=== PATIENT | male | born 1950 | race Caucasian/White ===

== ENCOUNTER → 2017-06-16 | Outpatient (CLI) | payer MEDICARE ==
[2017-06-16 14:46] LABS: Blood Urea Nitrogen 14 mg/dL (9-20); Non-African American GFR(MDRD) >60 (>60 ml/min/1.73 sqM)
== END | disposition home or self-care (01) ==
LOC: LABWHC1 14:12
PROVIDERS: ATTEND Family Medicine
DX: M51.36 Other intervertebral disc degeneration, lumbar region (principal)
CPT/HCPCS: 36415; 82565; 84520

== ENCOUNTER → 2017-06-17 | Outpatient (CLI) | payer MEDICARE ==
--- NOTE | 2017-06-17 10:19 | MR ---
EXAMINATION TYPE: MR cspine/lspine wo/w con DATE OF EXAM: 06/17/2017 COMPARISON: NONE HISTORY: Cervicalgia, and Low back pain per order. Headache with neck pain for 12 years causing pain or weakness into left arm per patient. Low back pain into bilateral thighs for 40 years per patient. TECHNIQUE: Multiplanar, multisequence images of the lumbar cervical and lumbar spine are performed without and w ith IV contrast, utilizing 20 mL intravenous MultiHance FINDINGS: C-SPINE: FINDINGS: Sagittal images of the cervical spine show the craniocervical junction to appear within nor mal limits. The cervical and upper thoracic spinal cord is normal in course, caliber, and signal. Th ere is slight levoconvex scoliotic curvature centered in the upper to midthoracic spine on coronal im ages. Spine is somewhat straightened on sagittal images. The vertebral body and heights are normal. T here is moderate to advanced disc space narrowing C4-C5 level and more mild to moderate disc space na rrowing C5-C6 level with mild disc space narrowing seen at C6-C7 level. Small posterior disc herniati ons and spur disc complexes are seen at C4-C5 through C6-C7 level on sagittal images. Mild to moderat e multilevel anterior spurring in the mid to lower cervical spine is present. There is heterogeneous increased T1 and T2 signal consistent with Modic type II degenerative change centered at the posterio r C4-C5 level. No suspicious postcontrast enhancement is seen. Axial images at C2-C3 level show left paracentral disc protrusion effacing anterolateral thecal sac, bilateral neural foramina are patent. Axial images at C3-C4 level show broad-based left paracentral disc protrusion effacing anterolateral thecal sac, bilateral neural foramina are patent on axial image 39. Axial images at C4-C5 level show right paracentral spur disc complex effacing anterolateral thecal sa c on axial image 30, bilateral neural foramina are patent. Axial images at C5-C6 level show focal right paracentral disc protrusion with some posterior marginal spurring, there is effacement anterior thecal sac and asymmetric mild to moderate left-sided neural foraminal narrowing at this level identified. Right-sided neural foramen is patent. Axial images at C6-C7 level show focal right paracentral/foraminal disc protrusion effacing anterolat eral thecal sac and causing moderate right-sided neural foraminal narrowing on axial image 16, left-s ided neural foramen is patent. Axial images at C7-T1 level are felt within normal limits. IMPRESSION: Some loss of normal cervical curvature with multilevel degenerative changes in the cervic al spine identified with further details as noted in body of report. L-SPINE: Sagittal images of the lumbar spine show vertebral body heights to appear satisfactory. There are yadira ateral pars defects L5 level with a grade 1 anterolisthesis L5 on S1 measured 6 mm on sagittal image 9. There is multilevel disc desiccation. There is fairly advanced disc space narrowing most prominent posteriorly L5-S1 level. Posterior disc herniation L4-L5 level as seen on sagittal images. The conu s medullaris is normal in position and signal ending at T12-L1 disc space level. There is heterogeneo us increased T1 and T2 signal consistent with Modic type II degenerative change at L5-S1 level. No si gnificant spurring is seen. No suspicious postcontrast enhancement is present. Axial images at T12-L1 and L1-L2 level show mild facet degenerative changes bilaterally but spinal ca nal is preserved and bilateral neural foramina are patent. Axial images at L2-L3 and L3-L4 level show mild to borderline moderate facet degenerative bilaterally . In addition there is tiny central disc protrusion and annular tear L3-L4 level minimally effacing a nterior thecal sac. Bilateral neural foramina are patent at both levels. Axial images at L4-L5 level show mild/moderate facet degenerative changes bilaterally. There is right paracentral disc protrusion but spinal canal is preserved. There is asymmetric mild right-sided ante rior inferior neural foraminal narrowing. Left-sided neural foramen is patent. Axial images at L5-S1 level show spondylolisthesis and moderate facet degenerative changes bilaterall y. Spinal canal is preserved. There is moderate left-sided inferior neural foraminal narrowing. There is more severe right-sided neural foraminal narrowing encroaching on right L5 nerve seen best on sag ittal image 13 and axial image 4. There is 1.6 cm oval T2 hyperintense lesion medially in left kidney on axial image 30 felt to reflect simple cyst. IMPRESSION: Bilateral pars defects L5 level with grade 1 anterolisthesis of L5 on S1. There is advanc ed disc space narrowing at this level. There is advanced right-sided neural foraminal narrowing with attachment on right L5 nerve noted.
== END | disposition home or self-care (01) ==
LOC: RADMRIMAIN 07:10
PROVIDERS: ATTEND Family Medicine
DX: M48.07 Spinal stenosis, lumbosacral region (principal); M99.73 Connective tissue and disc stenosis of intervertebral foramina of lumbar region; M43.17 Spondylolisthesis, lumbosacral region; M47.817 Spondylosis without myelopathy or radiculopathy, lumbosacral region; M51.36 Other intervertebral disc degeneration, lumbar region
CPT/HCPCS: 72156; 72158

== ENCOUNTER → 2017-06-23 | Outpatient (CLI) | payer MEDICARE ==
[2017-06-23 13:00] VITALS: BP 122/86; PULSE 107; RESP 18; TEMP 99.1
--- NOTE | 2017-06-23 13:20 | P.PN ---
Progress Note - Text This is a 66-year-old male with history of cervical spondylosis and lumbar spondylolisthesis. His pain is worse in his neck area on the left side and goes to the left shoulder and also up to the head. He had very good response to a previous radiofrequency ablation of the cervical medial branches at C2-C3 and the third occipital nerve. He states that this procedure has given him at least 18 months of pain relief but his pain has been getting worse lately. He takes Neurontin to help with this pain. His last MRI of the cervical spine showed moderate to advanced disc space narrowing at C4 5 level and also right paracentral disc protrusion at the C6 7 level with moderate right-sided neural foraminal stenosis. The lumbar spine MRI showed L5-S1 spondylolisthesis with bilateral pars defect and advanced right-sided neural foraminal stenosis at the L5-S1 level. I will schedule the patient to have left cervical medial branch radiofrequency ablation under fluoroscopic guidance for levels C2, C3 and third occipital nerve.
== END | disposition home or self-care (01) ==
LOC: PNWHC3 12:03
PROVIDERS: ATTEND Anesthesiology
DX: M54.2 Cervicalgia (principal)
CPT/HCPCS: 99211

== ENCOUNTER 2017-06-25 10:58 | Day surgery (SDC) | payer MEDICARE ==
[2017-06-24 09:55] VITALS: BMI 33.7
[2017-06-25] MEDS ORDERED: LIDOCAINE 1% 20 ML VIAL (10MG/ML) FOR IV START INTRADERMA ONE (11:05)
[2017-06-25 11:08] VITALS: TEMP 98.9
[2017-06-25 11:14] LABS: Glucose,Whole Blood 128 mg/dL (75-99)
[2017-06-25] MEDS ORDERED: LACTATED RINGERS 1,000 ML IV SCH (11:15)
--- NOTE | 2017-06-25 11:56 | P.PCN ---
Date of Procedure: 06/25/17 Preoperative Diagnosis: Postoperative Diagnosis: Procedure(s) Performed: Implants: Surgeon: Olu Wang Pathology: none sent Condition: stable Disposition: PACU Indications for Procedure: Operative Findings: Description of Procedure: PREOPERATIVE DIAGNOSIS: Cervical spondylosis without myelopathy and facet arthropathy. POSTOPERATIVE DIAGNOSIS: Cervical spondylosis without myelopathy and facet arthropathy. PROCEDURES: Radiofrequency thermocoagulation, C2-C3, C3-C4, and third occipital nerve with fluoroscopic guidance, left side. ANESTHESIA: Local with 1% lidocaine; conscious sedation EBL: Minimal PROCEDURE INDICATION: The patient with neck pain secondary to cervical arthropathy who had more than 50% relief of pain with previous diagnostic cervical medial branch block and previous excellent relief with cervical RFA. No use of blood thinners. PROCEDURE DESCRIPTION / TECHNIQUE: The patient was seen and identified in the preoperative area. Risks, benefits, complications, and alternatives were discussed with the patient (with risks including but not limited to bleeding, infection, nerve damage, incomplete pain relief, and allergic reactions to medications), the patient agreed to proceed with the procedure and signed the informed consent after all questions were answered. IV was started. Vital signs remained stable throughout the procedure. Patient was taken to the OR and time out was completed. The patient was placed in the prone position on the procedure table. A pillow was placed under the patients chest to increase the cervical interlaminar space. The cervical area was prepped and draped in the usual sterile fashion. Critical pause was taken. Vital signs were closely monitored during the procedure. Conscious sedation was used during the procedure to decrease patients anxiety. Using AP fluoroscopy, the centroid of the trapezoid of C2, C3, C4, C5 were identified, marked, and localized with 1% lidocaine. Subsequently, a 21 gauge 100-mm radiofrequency cannula with a 5-mm active tip was advanced guided by fluoroscopy to the waist (medial branch groove) of the C3 and C4 vertebral bodies on the left side, and to the lateral edge of the C2/C3 facet joint on the left also. Needle tip position was confirmed with lateral view at the centroid of the trapezoids of C3 and C4 and lateral to the C2/C3 facet joint with anteroposterior fluoroscopy. Each site then underwent sensory testing at 50 Hz and 0 to 1 volt and motor testing at 2 Hz and 0 to 3 volt with local stimulation, but no radicular symptoms down the arm. Thereafter all three sites underwent radiofrequency thermocoagulation at 80 degrees celsius for 90 seconds after injecting 0.5 ml of PF lidocaine 1%. After thermocoagulation, 1 ml of the block solution containing Decadron 10 mg and 2 mL of preservative- free normal saline was injected at each site after negative aspiration of CSF and blood and with no paresthesias. Cannulas were retracted while injecting lidocaine 1% until the needle is out. Skin was cleansed and bandages were applied. COMPLICATIONS: No acute complications. COMMENTS: DISPOSITION / PLANS: The patient was placed in a supine position and transferred to the recovery area in a stable condition for observation and was discharged from the recovery room after meeting discharge criteria. Home discharge instructions given to the patient by the staff. The patient was reexamined prior to discharge. The patient will schedule a right cervical C2-C3 , C3-C4, and TON RFA in 4-6 weeks.
[2017-06-25] MEDS ORDERED: IV FLUID CONTINUATION 1,000 ML IV ONE (12:02)
[2017-06-25 12:05] VITALS: RESP 18
--- NOTE | 2017-06-25 12:12 | FL ---
Fluoroscopy HISTORY: Pain 16 seconds fluoroscopy time supplied to the referring clinician. 2 intraoperative C-arm images docum ent the procedure. See dictated report from anesthesia.
[2017-06-25 12:23] VITALS: BP 112/72; PULSE 82
== END 2017-06-25 12:45 | disposition home or self-care (01) ==
LOC: ORPAIN 10:58
DX: M47.812 Spondylosis without myelopathy or radiculopathy, cervical region (principal); M46.92 Unspecified inflammatory spondylopathy, cervical region; Z79.899 Other long term (current) drug therapy
CPT/HCPCS: 64633; 64634; J2250; J1100; J3010; 99152; 99153

== ENCOUNTER 2017-07-23 12:06 | Day surgery (SDC) | payer MEDICARE ==
[2017-07-15 16:09] VITALS: BMI 33.7
[~2017-07-23 12:06] MED LIST: LACTATED RINGERS 1,000 ML IV ONE
[2017-07-23 12:52] VITALS: RESP 16; TEMP 98.1
[2017-07-23 12:57] LABS: Glucose,Whole Blood 98 mg/dL (75-99)
[2017-07-23] MEDS ORDERED: LIDOCAINE 1% 20 ML VIAL (10MG/ML) FOR IV START INTRADERMA ONE (12:57)
--- NOTE | 2017-07-23 14:37 | P.PCN ---
Date of Procedure: 07/23/17 Preoperative Diagnosis: Postoperative Diagnosis: Procedure(s) Performed: PREOPERATIVE DIAGNOSIS:1- Cervical spondylosis with Facet Arthropathy without myelopathy. 2-cervicogenic headache. 3-occipital neuralgia POSTOPERATIVE DIAGNOSIS: Same as preop diagnosis. PROCEDURES: Right side Radiofrequency thermocoagulation, C2-3, C3-4, medial branch with Fluroscopy Guidence. Right side radiofrequency thermocoagulation of the third occipital nerve under fluoroscopy guidance ANESTHESIA: Local with 1% lidocaine 4 ml ; IV sedation 2 mg Versed. EBL: Minimal PROCEDURE INDICATION: The patient with neck pain secondary to cervical arthropathy who had more than 50% relief of her pain with previous diagnostic cervical medial branch block. PROCEDURE DESCRIPTION / TECHNIQUE: The patient was seen and identified in the preoperative area. Risks, benefits, complications, and alternatives were discussed with the patient, the patient agreed to proceed with the procedure and signed the consent. IV was started. Vital signs remained stable throughout the procedure. Patient was taken to the OR and time out was completed. The patient was placed in the prone position on the procedure table. A pillow was placed under the patients chest to increase the cervical interlaminar space. The cervical area was prepped and draped in the usual sterile fashion. Critical pause was taken. Vital signs were closely monitored during the procedure. Conscious sedation was used during the procedure to decrease patients anxiety. Using cross-table lateral fluoroscopy, the centroid of the trapezoid of right C2 , C3, were identified, marked, and localized with 1% lidocaine. Subsequently, a 20 -vl radiofrequency cannula with a 10-mm active tip was advanced guided by fluoroscopy to the centroid of the trapezoid of right C2 , C3, . Needle tip position was confirmed at the centroid of the trapezoids of Right C2 , C3, with anteroposterior fluoroscopy. Each site then underwent sensory testing at 50 Hz and 0 to 1 volt and motor testing at 2 Hz and 0 to 3 volt with local stimulation, but no radicular symptoms down the arm. Thereafter right C2-3, C3-4 sites underwent radiofrequency thermocoagulation at 80 degrees celsius for 90 seconds after injecting 0.5 ml of PF lidocaine 1%. After thermocoagulation, 1 ml of the block solution containing Dexamethasone 10 mg , was injected at the C2-3, C3-4, levels after negative aspiration of CSF and blood and with no paresthesias. Cannulas were retracted while injecting lidocaine 1% until the needle is out. After that I did the consent ablation of the right side third occipital nerve by placing 20-gauge radiofrequency active tip needle at the center of the facet joints on the right side that is from between the C2 and C3 levels in the placed at the center of the facet joint Imitrex for the motor stimulation which was negative for any contractions in the right upper extremity and recheck for the sensory stimulation which was positive, and otherwise negative aspiration for heme and CSF, needle placement confirmed with AP and lateral view then after needle placement confirmed within the thermocoagulation at 80C for 90 seconds , before the needles taken off Marcaine 0.5% preservative-free 1 mL injected , then the needle removed, Skin was cleansed and bandages were applied. COMPLICATIONS: No acute complications DISPOSITION / PLANS: The patient was placed in a supine position and transferred to the recovery area in a stable condition for observation and was discharged from the recovery room after meeting discharge criteria. Home discharge instructions given to the patient by the staff. The patient was reexamined prior to discharge. The patient will schedule a follow up in the clinic in 2-4 weeks. Implants: Indications for Procedure: Operative Findings: Description of Procedure:
--- NOTE | 2017-07-23 14:47 | FL ---
FLUOROSCOPY 1 minute and 13 seconds of fluoroscopy time were utilized during cervical radiofrequency therapy. 4 i mages document the procedure.
[2017-07-23 14:54] VITALS: BP 127/85; PULSE 89
[2017-07-23] MEDS ORDERED: IV FLUID CONTINUATION 1,000 ML IV ONE (14:54)
== END 2017-07-23 14:58 | disposition home or self-care (01) ==
LOC: ORPAIN 12:06
PROVIDERS: ATTEND Specialist
DX: M47.812 Spondylosis without myelopathy or radiculopathy, cervical region (principal); M46.92 Unspecified inflammatory spondylopathy, cervical region; M54.81 Occipital neuralgia; R51 Headache; I10 Essential (primary) hypertension; J44.9 Chronic obstructive pulmonary disease, unspecified; E11.9 Type 2 diabetes mellitus without complications; Z88.1 Allergy status to other antibiotic agents; Z88.5 Allergy status to narcotic agent
CPT/HCPCS: 99152; 99153 ×2; 64633; 64634; J2250; J1100; 64640

== ENCOUNTER → 2017-09-02 | Outpatient (CLI) | payer MEDICARE ==
[2017-09-02 15:22] VITALS: BP 129/69; PULSE 77; RESP 18; TEMP 99
--- NOTE | 2017-09-03 11:02 | P.PN ---
Subjective Progress Note Date: 09/02/17 This is follow-up visit for this patient with a history of severe and chronic neck pain and headache ,HE IS diagnosed with occipital neuralgia and cervicogenic headache and cervical spondylosis, we have done interventional pain management injection, radiofrequency ablation of the medial branch cervical area, currently is complaining of severe muscle spasm and neck pain on the left side of the cervical spine, he denies any motor or sensory deficits. He denies any fever or night sweats and no change in the bowel movements or urination, is currently on, 1-Neurontin 800 mg every morning and 1600 mg daily at bedtime 2-Elavil 50 mg daily at bedtime He is getting his prescription refilled from his primary care Patient denies any side effects of the medication, denies excessive drowsiness or sleepiness, denies suicidal ideation, and reports that the current pain medication is NOT helping To control the pain and improve activity of daily living Patient denies any motor or sensory deficit , patient denies any fever or night sweats, denies any change in the bowel movements or urination Physical Examinations : 1-Constitutiona : Cooperative , not in acute distress . 2-HEENT : nech ; supple , no Lymphadenopathy , no Thyromegaly , normal thyroid size . eyes : no ptosis , no icterus, no photophobia . ENT : normal of hearing , normal oropharynx , no Thrush . 3- Respiratory : Chest clear to auscultations Bilaterally , no wheezing , no Rhonchi . 4- Cardiovascular : regular rate and rhythem , S1 , S2 , no S3 , no S4. 5- Gastrointestinal : abdomen soft no tenderness , bowel sounds positive all four quadrents , no organomegally . 6- Genitourinary : Defferred . 7- neurologic : Cranial nerve II to XII intact , no focal neurological deffecit . 8-psychatric : alert , oriented X 3 , appropriate affect , intact judgment and insight . 9-Lymphatic : no Lymphadenopathy . 10- musculoskeltal : exams of the cervical spine = motor strength normal bilateral upper extremities Multiple trigger points identified in the left-sided cervical paravertebral muscles Assessment and plan = chronic neck pain and headache diagnosed with cervical spondylosis and cervicogenic headache status post radiofrequency ablation of the medial branch cervical area, currently he is complaining of leg pain mostly secondary to myofascial component Patient will be good candidate to have trigger point injection in the left-sided cervical paravertebral muscles, procedure risk and benefits discussed with the patient and he agreed with proceeding Objective - Vital Signs Vital signs: Vital Signs Temp 99 F 09/02/17 15:14 Pulse 77 09/02/17 15:14 Resp 18 09/02/17 15:14 BP 129/69 09/02/17 15:14 Pulse Ox 95 09/02/17 15:14 Intake & Output 09/02/17 09/03/17 09/03/17 18:59 06:59 18:59 Weight 106.594 kg
== END ==
LOC: PNWHC3 14:33
PROVIDERS: ATTEND Specialist
DX: M47.812 Spondylosis without myelopathy or radiculopathy, cervical region (principal); Z79.891 Long term (current) use of opiate analgesic
CPT/HCPCS: 99211

== ENCOUNTER → 2017-12-29 | Outpatient (CLI) | payer MEDICARE ==
[2017-12-29 11:56] LABS: Blood Urea Nitrogen 17 mg/dL (9-20)
--- NOTE | 2017-12-29 12:58 | CT ---
EXAMINATION TYPE: CT soft tissue neck w con DATE OF EXAM: 12/29/2017 HISTORY: Left sided posterior neck swelling COMPARISON: NONE CT DLP: 632.9 mGycm. Automated Exposure Control for Dose Reduction was Utilized. TECHNIQUE: CT scan of the neck is performed with IV Contrast, patient injected with 100 mL of Omnipa que 300, axial images are obtained, coronal and sagittal reformatted images are reviewed. FINDINGS: Airway: No gross abnormality seen. Oropharynx is patent as are the supraglottic and infraglottic airw ay. Parotid/submandibular glands: No gross abnormality seen. Bilateral intraparotid lymph nodes are pres ent. Carotid/Vascular Structures: There is a normal anatomic great vessel branch pattern. No significant a therosclerosis is seen of the common carotid arteries, external carotid arteries or visualized portio n of the internal carotid arteries. Vertebral arteries are codominant. Osseous Structures: There is mild leftward nasal septal deviation and a small left nasal septal spur. Minimal mucosal thickening is present within the ethmoid sinuses with antrostomy defects of the maxi llary sinuses. Mild multilevel degenerative disc disease of the cervical spine is noted. Other: Mildly asymmetric subcutaneous edema is seen posterior to the left helix and mastoid air cells . Skin thickness is similar to the right. No focal fluid collection. No mass is identified. No abnorm al enhancement. Subcentimeter right thyroid nodules incidentally identified measuring 5 mm. Moderate centrilobular emphysematous changes are seen of the visualized lungs. IMPRESSION: 1. Mildly asymmetric subcutaneous edema without mass, abnormal enhancement, asymmetric skin thickenin g, or focal fluid collection of the left posterior neck directly behind the patient's ear and mastoid air cells. This is a nonspecific inflammatory process and could represent ecchymosis or cellulitis. 2. Moderate centrilobular emphysema.
== END | disposition home or self-care (01) ==
LOC: RADCTMAIN 11:02
PROVIDERS: ATTEND Family Medicine
DX: R60.0 Localized edema (principal)
CPT/HCPCS: 82565; 84520; 70491; 36415; Q9967

== ENCOUNTER → 2018-02-13 | Outpatient (CLI) | payer MEDICARE ==
--- NOTE | 2018-02-13 10:17 | MR ---
EXAMINATION TYPE: MR brain and iac wo/w con DATE OF EXAM: 02/13/2018 10:00 AM COMPARISON: NONE HISTORY: Hearing loss / Acoustic nerve disorder, dizziness, unbalance, TECHNIQUE: Multiplanar, multiecho imaging of the brain was obtained with and without intravenous adm inistration of 10 mL intravenous Gadavist. FINDINGS: Midline structures are unremarkable. There is a normal craniocervical junction. Echoplanar diffusion imaging is normal. There are normal vascular flow voids. The orbits are unremarkable. High-resolution imaging through the posterior fossa exquisitely demonstrates the seventh 8th nerve co mplex without evidence of a CP angle mass lesion or intracanalicular acoustic schwannoma. Following intravenous demonstration of gadolinium, I do not see evidence of abnormal enhancement. Spe cifically, I do not see evidence of an enhancing intracanalicular acoustic schwannoma. There is a small amount of abnormal FLAIR signal in the right frontal lobe in the superior longitudin al fasciculus as well as some abnormal gyriform signal in the same location. There is no abnormal enh ancement in this location. No other focal lesion, mass effect or midline shift is seen. I do not see evidence of intracranial blood. IMPRESSION: 1. NO EVIDENCE OF A CP ANGLE MASS LESION OR INTRACANALICULAR ACOUSTIC SCHWANNOMA. 2. EVIDENCE OF A PREVIOUS INSULT IN THE SUPERIOR LONGITUDINAL FASCICULUS ON THE RIGHT LIKELY DUE TO P REVIOUS ISCHEMIC EVENT.
== END | disposition home or self-care (01) ==
LOC: RADMRIMAIN 08:24
PROVIDERS: ATTEND Otolaryngology
DX: H93.3X1 Disorders of right acoustic nerve (principal); H91.91 Unspecified hearing loss, right ear
CPT/HCPCS: 82565; 70553; A9581

== ENCOUNTER → 2018-02-16 | Outpatient (CLI) | payer MEDICARE ==
[2018-02-16 13:48] VITALS: BP 137/84; PULSE 76; RESP 18
--- NOTE | 2018-02-16 14:17 | P.PN ---
Progress Note - Text Progress Note Date: 02/16/18 Patient returns for followup for chronic neck pain, s/p cervical RFA x 2 in June 2017. Patient has had persistent swelling in the left side of his neck since RFA on that side and complains of some tightness in that area. Patient was scheduled for L cervical TPI by Dr. Betts but opted for conservative treatment, but has not had relief with this since that time, including ice, heat , NSAIDs, and oral steroids. Patient does not get medications from our clinic. Today, pt denies new-onset weakness, bowel/bladder incontinence, or any other signs or symptoms of cauda equina syndrome. There are no signs of acute intoxication, and no indications of medication diversion or overuse. In addition to above, 13-point review of systems is also negative for chest pain , shortness of breath, changes in vision, changes in hearing, new onset weakness , abdominal pain, diarrhea, extreme fatigue, malaise, fever, skin changes, homicidal or suicidal ideation, or bowel or bladder incontinence. 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 cervical spondylosis 2. cervical myofascial pain 3. chronic pain syndrome Plan: 1. Explanation: Opioid and psychological risk scores were reviewed. Diagnoses , prognoses, and multiple treatment options including but not limited to physical therapy, interventional therapies, adjuvant medical therapies, narcotic medication therapies, and surgery were discussed with the patient and all questions were answered to the patient's satisfaction. 2. Opioid agreement: no opioids prescribed today 3. Counseling: The patient was counseled extensively on BODY MASS INDEX, EXERCISE. Specifically, the patient was instructed regarding the importance of weight control, and exercise in the context of both chronic pain and overall health. 4. Procedures: L cervical TPI 5. Consultations: None 6. Investigations: None 7. Medications: none prescribed 8. Disposition: f/u for procedure as scheduled
== END | disposition home or self-care (01) ==
LOC: PNWHC3 13:30
PROVIDERS: ATTEND Anesthesiology
DX: G89.4 Chronic pain syndrome (principal); M47.812 Spondylosis without myelopathy or radiculopathy, cervical region; M79.1 Myalgia
CPT/HCPCS: 99211

== ENCOUNTER 2018-03-22 06:32 | Day surgery (SDC) | payer MEDICARE ==
[2018-03-17 13:41] VITALS: BMI 31.8
[2018-03-22 07:13] VITALS: RESP 18; TEMP 98.2
[2018-03-22] MEDS: LACTATED RINGERS 1,000 ML IV SCH ×2 (07:20→07:41)
[2018-03-22] MEDS ORDERED: LIDOCAINE 1% 20 ML VIAL (10MG/ML) FOR IV START INTRADERMA ONE ×2 (07:21)
[2018-03-22 07:27] LABS: Glucose,Whole Blood 130 mg/dL (75-99)
[2018-03-22] MEDS ORDERED: IV FLUID CONTINUATION 1,000 ML IV ONE (07:57)
--- NOTE | 2018-03-22 07:59 | P.PCN ---
Date of Procedure: 03/22/18 Procedure(s) Performed: Preoperative diagnoses= 1-myofascial pain syndrome cervical area 2- cervical spondylosis Postoperative diagnoses= same as preoperative diagnosis. Procedure= trigger point injections injection left sided cervical paravertebral muscles total of 4 trigger points injected Anesthesia= moderate sedation with Versed 2 mg . Estimated blood loss=minimal. Procedure indication= the patient had a history of severe chronic neck pain, diagnosed with myofascial pain syndrome and cervical spondylosis unresponsive to conservative treatment. Procedure description= the patient was seen and identified in the preoperative holding area, risks and benefits and alternative of the procedure and possible complications discussed with the patient, and he agreed with the preceding, patient signed the consent, an IV was started, and vital signs were monitored and were stable throughout the procedure, patient was placed in the prone position or table and the cervical area was prepped and draped with a sterile fashion, vital signs were closely monitored during the procedure, then using 25- gauge needle each of the trigger points was injected with 2 ML of the mixture of 0.5 Marcaine 8 ML and 40 mg of Kenalog mixed with her and 2 ML of the mixture injected at each trigger point after negative aspiration , and there was no paresthesia during the injections , total of 4 trigger points injected in the left-sided cervical paravertebral muscles Patient tolerated the procedure well without any complication, Then the skin was cleaned and a Band-Aid applied, the patient transported to recovery room in stable condition and he was monitored for 30 minutes before he was discharged home and then patient was reexamined before going home and patient was discharged in stable condition and patient will follow up with the pain clinic in a few weeks
[2018-03-22 08:24] VITALS: BP 102/67; PULSE 81
== END 2018-03-22 08:37 | disposition home or self-care (01) ==
LOC: ORPAIN 06:32
PROVIDERS: ATTEND Specialist
DX: M47.812 Spondylosis without myelopathy or radiculopathy, cervical region (principal); M79.1 Myalgia; K21.9 Gastro-esophageal reflux disease without esophagitis; E11.9 Type 2 diabetes mellitus without complications; I10 Essential (primary) hypertension; J44.9 Chronic obstructive pulmonary disease, unspecified; G47.33 Obstructive sleep apnea (adult) (pediatric); G89.29 Other chronic pain; Z88.5 Allergy status to narcotic agent; Z88.3 Allergy status to other anti-infective agents; Z88.8 Allergy status to other drugs, medicaments and biological substances
CPT/HCPCS: 20552; J2250; J3301; 20553

== ENCOUNTER → 2018-04-28 | Outpatient (CLI) | payer MEDICARE ==
--- NOTE | 2018-04-28 14:30 | P.PN ---
Progress Note - Text Progress Note Date: 04/28/18 Patient returns for followup for chronic neck pain, s/p cervical RFA x 2 in June 2017; patient still has lump on the neck after TPI procedure. In fact, patient has had persistent swelling in the left side of his neck since RFA on that side and complains of some tightness in that area. He has also not had relief with this since that time, including ice, heat, NSAIDs, and oral steroids. Patient does not get medications from our clinic. Today, pt denies new-onset weakness, bowel/bladder incontinence, or any other signs or symptoms of cauda equina syndrome. There are no signs of acute intoxication, and no indications of medication diversion or overuse. In addition to above, 13-point review of systems is also negative for chest pain , shortness of breath, changes in vision, changes in hearing, new onset weakness , abdominal pain, diarrhea, extreme fatigue, malaise, fever, skin changes, homicidal or suicidal ideation, or bowel or bladder incontinence. Vital Signs: Reviewed in EMR Gen: WDWN, AAOx3, NAD HEENT: NCAT, EOMI, hearing grossly normal Pulm: resp unlabored Abd: soft, NT, ND Neck: supple, trachea midline ROM in flexion cervical spine: reduced ROM in extension cervical spine: reduced with greater restriction Cervical paravertebral tenderness: L >> R, no palpable edema Cervical Facet tenderness: neg Spurling's: neg Imaging: Reviewed in EMR Assessment: 1. cervical spondylosis 2. cervical myofascial pain 3. chronic pain syndrome Plan: 1. Explanation: Opioid and psychological risk scores were reviewed. Diagnoses , prognoses, and multiple treatment options including but not limited to physical therapy, interventional therapies, adjuvant medical therapies, narcotic medication therapies, and surgery were discussed with the patient and all questions were answered to the patient's satisfaction. 2. Opioid agreement: no opioids prescribed today 3. Counseling: The patient was counseled extensively on BODY MASS INDEX, EXERCISE. Specifically, the patient was instructed regarding the importance of weight control, and exercise in the context of both chronic pain and overall health. 4. Procedures: none for now 5. Consultations: None 6. Investigations: ACTH stim test for steroid-induced endocrinopathy 7. Medications: Zanaflex 4 mg #60 with one refill, TENS unit prescribed 8. Disposition: f/u for re-eval in 3-4 weeks
== END | disposition home or self-care (01) ==
LOC: PNWHC3 13:33
PROVIDERS: ATTEND Anesthesiology
DX: G89.4 Chronic pain syndrome (principal); M47.812 Spondylosis without myelopathy or radiculopathy, cervical region; M79.1 Myalgia; Z79.899 Other long term (current) drug therapy
CPT/HCPCS: 99211

== ENCOUNTER → 2018-05-11 | Outpatient (CLI) | payer MEDICARE ==
[~2018-05-11] MED LIST changes: +COSYNTROPIN 0.25 MG VIAL IVP ONE; -LACTATED RINGERS 1,000 ML IV ONE
[2018-05-11 09:00] VITALS: BP 126/77; PULSE 76; RESP 16; TEMP 97.7
== END | disposition home or self-care (01) ==
LOC: PROCWHC3 08:33
PROVIDERS: ATTEND Anesthesiology
DX: E24.2 Drug-induced Cushing's syndrome (principal)
CPT/HCPCS: 82533; 82024; 96374; 36415; J0834

== ENCOUNTER → 2018-05-12 | Outpatient (CLI) | payer MEDICARE ==
[2018-05-12 14:51] VITALS: BP 145/84; PULSE 85; RESP 18
--- NOTE | 2018-05-12 15:05 | P.PAINPG ---
Subjective Progress Note Date: 05/12/18 Principal diagnosis: Lumbar spondylosis, cervical spondylosis, left cervical subcutaneous edema This very pleasant 67-year-old gentleman with a long-standing history of neck pain and low back pain. He has had cervical radio frequency ablation as well as lumbar radio. The ablation in the past. These have always been helpful for him. When he had his left cervical medial branch radio frequency ablation performed last June, he experiences some subcutaneous swelling in the area after the procedure. It is unclear whether this had anything to do with the procedure. He also identifies his sleep habits as well as a CPAP mask as possible etiologies for this swelling. It is been characterized on radiographic studies. The etiology is unclear. The treatment is also unclear. At his last appointment, he was prescribed Zanaflex. This was only refilled recently and therefore it is unknown known whether this is actually helping him. Objective - Vital Signs Vital signs: Vital Signs Temp Pulse 85 05/12/18 14:38 Resp 18 05/12/18 14:38 BP 145/84 05/12/18 14:38 Pulse Ox 93 L 05/12/18 14:38 Intake & Output 05/11/18 05/12/18 05/12/18 18:59 06:59 18:59 Weight 103.873 kg - Exam General: The patient is alert and oriented. Patient is not sedateded Patient answers all question appropriately. Cardiac: Heart is regular in rate and rhythm Respiratory: Clear to auscultation. No audible wheezes. Abdomen: Soft nontender nondistended. Lower extremities: Strength is normal bilaterally. Sensation is normal bilaterally. Reflexes are preserved and symmetric bilaterally. Straight leg raise is negative bilaterally. Facet loading maneuvers are positive bilaterally but more so on the right side in the lumbar spine. Neck: The patient does have asymmetric swelling of his neck on the left side. He is tender to palpation at this location. Assessment and Plan Assessment: Plan of Care 1. Medications: Patient is not receiving any medications from our clinic at this time. I 2. Interventions: Patient is requesting to have a right lumbar radio frequency ablation performed. He has had these in the past and they have afforded him excellent relief of his low back pain. We will schedule this in the near future. 3. Referrals: I'm referring the patient to physical therapy for fluid mobilization in his left posterior cervical spine. He will also continue to evaluate whether his CPAP mask is playing a role in his pathology. I've also encouraged him to look into spinal alignment issues when he is laying flat in bed. 4. Testing: No testing was ordered at this appointment. I did review results from a previous cortical stim test which appeared to have normal results. 5. Psychological: Patient denies any significant anxiety or depression. I will not refer him to a psychologist today. (1) Spondylosis of lumbar region without myelopathy or radiculopathy Current Visit: Yes Status: Acute Code(s): M47.816 - SPONDYLOSIS W/O MYELOPATHY OR RADICULOPATHY, LUMBAR REGION SNOMED Code(s): 17091076 PQRS Measure Charge Sheet Measure #130: Documentation of Current Meds in Medical Chart: Patient's medications documented in chart Measure #226: Tobacco Use: Screen & Cessation Intervention: Pt not a tobacco user Measure #111: Pneumonia Vaccination: Pneumococcal vaccine NOT administered or previously given Measure #47: Advance Care Plan: Advance care planning discussed & documented, pt chose/unable to give Measure #412: Opioid Treatment Agreement: No documentation of signed opioid treatment agreement Measure #408: Opioid Therapy Follow-up Evaluation: Patient had f/u eval minimum every 3 months during opioid therapy Measure #317: Preventitive Care & Scrn High Bld Press & F/U: Normal blood pressure, f/u not required Measure #128: Body Mass Index (BMI) Screening & Follow-up: BMI documented ABOVE normal parameters - f/u documented Measure #131: Pain Assessment & Follow-up: Pain positive & plan documented Measure #431: Unhealthy Alcohol Use Preventative Care & Scrn: Patient not identified as an unhealthy alcohol user PQRS Narrative: Smoking Status Former smoker Do You Want the Pneumonia Vaccine Up to Date Vaccine AT THIS TIME? Blood Pressure 145/84 Pain Intensity [Occipital] 7 Scale Used Numeric (1 - 10) Hx Alcohol Use (MH) No Home Medications: Ambulatory Orders Amitriptyline HCl [Elavil] 25 mg PO HS 08/29/14 FLUoxetine HCL [PROzac] 40 mg PO DAILY 08/29/14 Gabapentin 800 mg PO DAILY 08/29/14 Pramipexole [Mirapex] 1 mg PO HS 08/29/14 Simvastatin [Zocor] 20 mg PO HS 08/29/14 metFORMIN HCL [Glucophage] 1,000 mg PO BID 08/29/14 Dexlansoprazole [Dexilant] 60 mg PO DAILY 06/24/17 Gabapentin 1,600 mg PO HS 06/24/17 Pioglitazone [Actos] 15 mg PO DAILY 06/24/17 Dulaglutide [Trulicity] 0.75 mg SQ WEEKLY 02/16/18 Naproxen [Naprosyn] 500 mg PO DIRECTED PRN 04/28/18 tiZANidine HCL [Zanaflex] 4 mg PO Q12HR PRN #60 tab 04/28/18 Controlled Substance Measures - Controlled Substance Measures Is patient prescribed a controlled substance at discharge?: No
== END | disposition home or self-care (01) ==
LOC: PNWHC3 13:41
PROVIDERS: ATTEND Pain Medicine Pain Medicine
DX: M47.816 Spondylosis without myelopathy or radiculopathy, lumbar region (principal); Z87.891 Personal history of nicotine dependence; Z79.899 Other long term (current) drug therapy; Z79.84 Long term (current) use of oral hypoglycemic drugs
CPT/HCPCS: 99211

== ENCOUNTER 2018-06-07 07:36 | Day surgery (SDC) | payer MEDICARE ==
[2018-06-02 10:40] VITALS: BMI 31.9
[~2018-06-07 07:36] MED LIST changes: -COSYNTROPIN 0.25 MG VIAL IVP ONE; +LACTATED RINGERS 1,000 ML IV SCH
[2018-06-07 08:09] VITALS: TEMP 97.7
[2018-06-07] MEDS ORDERED: LIDOCAINE 1% 20 ML VIAL (10MG/ML) FOR IV START INTRADERMA ONE (08:19)
[2018-06-07 09:01] LABS: Glucose,Whole Blood 129 mg/dL (75-99)
--- NOTE | 2018-06-07 09:42 | P.PCN ---
Date of Procedure: 06/07/18 Surgeon: Rodney Hackett Description of Procedure: PREOPERATIVE DIAGNOSIS: Lumbar spondylosis without myelopathy POSTOPERATIVE DIAGNOSIS: Lumbar spondylosis without myelopathy PROCEDURES : Radiofrequency thermocoagulation,L2-4, L3-L4, L4-L5, and L5-S1 medial branch, with fluoroscopic guidance ANESTHESIA: IV moderate conscious sedation with versed and local infiltration with lidocaine 1% 5 ml EBL: Minimal PROCEDURE INDICATION: The patient with low back pain secondary to lumbar facet arthropathy who had more than 50% relief of her pain with previous diagnostic lumbar medial branch block with bupivacaine. PROCEDURE DESCRIPTION / TECHNIQUE: The patient was seen and identified in the preoperative area. Risks, benefits, complications, including but not limited to risk of infection ,bleeding , allergic reactions to the medications and no complete pain relief , and alternatives were discussed with the patient, the patient agreed to proceed with the procedure and signed the consent. IV was started. Vital signs remained stable throughout the procedure. The patient was scheduled to have the right side done however he states that his left side pain is more intense and he would rather start by doing the left lumbar medial branch RFA first. Patient was taken to the OR and time out was completed. The patient was placed in the prone position on the procedure table. The lumber area was prepped and draped in the usual sterile fashion. . Vital signs were closely monitored during the procedure .IV sedation was used during the procedure to decrease patients anxiety. The target points were identified as follows: For the L5-S1 level which corresponds to the dorsal ramus of L5 the target point was at the superior medial aspect of the sacral ala on the --Lt-- side of the spine on the AP view of fluoroscopy and for the L2, L3, and L4 medial branches the target points were at the connection between the transverse process and the superior articular process of L3, L4, and L5 vertebra respectively on the --Lt-- oblique view of fluoroscopy. skin was marked, and localized with 1% lidocaineat these points. Subsequently, an 18 [id number] radiofrequency needles with a 10-mm curved active tips were advanced guided by fluoroscopy to each of the target points mentioned above in a superior medial direction to get the active tips as parallel as possible to the medial branches tracks. AP, oblique, and lateral views of fluoroscopy were used to verify needle tips position. Each level then underwent motor testing at 2.5 Hz and 0 to 3 volt with local stimulation, but no radicular symptoms down the legs. Thereafter radiofrequency thermocoagulation at 80 degrees celsius for 90 seconds after injecting 1 ml of PF Ropivacaine 0.5%(3 mls) with 40 mg of Kenalog. At the end of the procedure, the skin was cleansed and bandages were applied. COMPLICATIONS: No acute complications. DISPOSITION / PLANS: The patient was placed in a supine position and transferred to the recovery area in a stable condition for observation and was discharged from the recovery room after meeting discharge criteria. Home discharge instructions given to the patient by the staff. The patient was reexamined prior to discharge. The patient will schedule a follow up in the clinic in 2-4 weeks.
[2018-06-07 10:18] VITALS: BP 136/79; PULSE 90; RESP 18
--- NOTE | 2018-06-07 11:22 | FL ---
Fluoroscopy HISTORY: Pain 20 seconds fluoroscopy time supplied to the referring clinician. 5 intraoperative C-arm images docum ent the procedure. See dictated report from anesthesia.
== END 2018-06-07 10:27 | disposition home or self-care (01) ==
LOC: ORPAIN 07:36
PROVIDERS: ATTEND Anesthesiology
DX: M47.816 Spondylosis without myelopathy or radiculopathy, lumbar region (principal); Z99.89 Dependence on other enabling machines and devices; Z79.84 Long term (current) use of oral hypoglycemic drugs; Z79.899 Other long term (current) drug therapy; Z88.1 Allergy status to other antibiotic agents; Z88.5 Allergy status to narcotic agent
CPT/HCPCS: 64635; 64636 ×3; J2250; J3301; J2001; 99152; 99153

== ENCOUNTER 2018-06-21 08:38 | Day surgery (SDC) | payer MEDICARE ==
[2018-06-14 14:48] VITALS: BMI 31.9
[2018-06-21 08:55] LABS: Glucose,Whole Blood 130 mg/dL (75-99)
[2018-06-21 08:56] VITALS: RESP 16; TEMP 98.3
--- NOTE | 2018-06-21 09:37 | P.PCN ---
Date of Procedure: 06/21/18 Surgeon: Rodney Hackett Pathology: none sent Condition: stable Disposition: PACU Description of Procedure: Description of Procedure: PREOPERATIVE DIAGNOSIS: Lumbar spondylosis without myelopathy POSTOPERATIVE DIAGNOSIS: Lumbar spondylosis without myelopathy PROCEDURES : Right Radiofrequency thermocoagulation L3-L4, L4-L5, and L5-S1 medial branch, with fluoroscopic guidance ANESTHESIA: IV moderate conscious sedation with versed and local infiltration with lidocaine 1% 5 ml EBL: Minimal PROCEDURE INDICATION: The patient with low back pain secondary to lumbar facet arthropathy who had more than 50% relief of her pain with previous diagnostic lumbar medial branch block with bupivacaine. PROCEDURE DESCRIPTION / TECHNIQUE: The patient was seen and identified in the preoperative area. Risks, benefits, complications, including but not limited to risk of infection ,bleeding , allergic reactions to the medications and no complete pain relief , and alternatives were discussed with the patient, the patient agreed to proceed with the procedure and signed the consent. IV was started. Vital signs remained stable throughout the procedure. The patient was scheduled to have the right side done however he states that his left side pain is more intense and he would rather start by doing the left lumbar medial branch RFA first. Patient was taken to the OR and time out was completed. The patient was placed in the prone position on the procedure table. The lumber area was prepped and draped in the usual sterile fashion. . Vital signs were closely monitored during the procedure .IV sedation was used during the procedure to decrease patients anxiety. The target points were identified as follows: For the L5-S1 level which corresponds to the dorsal ramus of L5 the target point was at the superior medial aspect of the sacral ala on the --Rt- side of the spine on the AP view of fluoroscopy and for the L2, L3, and L4 medial branches the target points were at the connection between the transverse process and the superior articular process of L3, L4, and L5 vertebra respectively on the -Rt- oblique view of fluoroscopy. skin was marked, and localized with 1% lidocaineat these points. Subsequently, an 18 -rg radiofrequency needles with a 10-mm curved active tips were advanced guided by fluoroscopy to each of the target points mentioned above in a superior medial direction to get the active tips as parallel as possible to the medial branches tracks. AP, oblique, and lateral views of fluoroscopy were used to verify needle tips position. Each level then underwent motor testing at 2.5 Hz and 0 to 3 volt with local stimulation, but no radicular symptoms down the legs. Thereafter radiofrequency thermocoagulation at 80 degrees celsius for 90 seconds after injecting 1 ml of PF Ropivacaine 0.5%(3 mls) with 40 mg of Depomedrol. At the end of the procedure, the skin was cleansed and bandages were applied. COMPLICATIONS: No acute complications. DISPOSITION / PLANS: The patient was placed in a supine position and transferred to the recovery area in a stable condition for observation and was discharged from the recovery room after meeting discharge criteria. Home discharge instructions given to the patient by the staff. The patient was reexamined prior to discharge. The patient will schedule a follow up in the clinic in 2-4 weeks.
--- NOTE | 2018-06-21 09:41 | FL ---
EXAMINATION TYPE: FL guided pain mgmt statistic DATE OF EXAM: 06/21/2018 COMPARISON: NONE HISTORY: Lumbar back pain TECHNIQUE: Fluoroscopy. FINDINGS/IMPRESSION: Fluoroscopic guidance was provided during procedure performed by Dr. Murillo. A total of 11 seconds of fluoroscopic time was utilized during the procedure and 1 spot images was acquired during a right-sided lumbar localization.
[2018-06-21] MEDS ORDERED: IV FLUID CONTINUATION 1,000 ML IV ONE (09:52)
[2018-06-21 10:04] VITALS: BP 122/78; PULSE 79
== END 2018-06-21 10:18 | disposition home or self-care (01) ==
LOC: ORPAIN 08:38
PROVIDERS: ATTEND Anesthesiology
DX: M47.816 Spondylosis without myelopathy or radiculopathy, lumbar region (principal); Z88.5 Allergy status to narcotic agent; Z88.3 Allergy status to other anti-infective agents; E11.9 Type 2 diabetes mellitus without complications; J44.9 Chronic obstructive pulmonary disease, unspecified
CPT/HCPCS: 64635; 64636 ×2; J2250; J1030; J2001; 99152; 99153

== ENCOUNTER → 2018-07-22 | Outpatient (CLI) | payer MEDICARE ==
--- NOTE | 2018-07-23 09:55 | P.PAINPG ---
Subjective Progress Note Date: 07/22/18 This 67 years old man with a chronic history of severe neck pain and headache, they) with cervicogenic headache, occipital neuralgia, cervical spondylosis with cervical facet arthropathy, we have done diagnostic medial branch block cervical area which was positive R median radiofrequency ablation of the medial branch cervical area, the radiofrequency ablation done more than a year ago, he continued to have ,no pain over the right side, but currently,he is complaining of severe neck pain on the left side associated with severe headache , the patient feels that his left side of the neck is swollen, MRI of the cervical spine ,and MRI and the computed tomography scan of the cervical spine that did not show any infection or fluid collection. Patient denies any motor , or sensory deficit he denies any numbness ,or tingling sensation in the upper extremity, he denies any fever or night sweats, denies any discharge ,from the cervical area. Also patient being diagnosed with lumbar spondylosis, and we did radiofrequency ablation of the medial branch lumbar area he reported that his pain improved significantly after the radiofrequency of the medial branch lumbar area, he denies any change in the bowel movement or urination patient currently on Zanaflex 4 mg every 12 hours naproxen 500 mg when necessary ,and Neurontin 1600 mg daily at bedtime and 800 mg daily Objective - Vital Signs Vital signs: Intake & Output 07/22/18 07/23/18 07/23/18 18:59 06:59 18:59 Weight 103.873 kg - Exam Physical Examinations : 1-Constitutional : Cooperative , not in acute distress . 2-HEENT: nech ; supple , no Lymphadenopathy , no Thyromegaly , normal thyroid size eyes : no ptosis , no icterus, no photophobia . ENT : normal / hard of hearing , normal oropharynx , no Thrush . 3- Respiratory : Chest clear to auscultations Bilaterally , no wheezing , no Rhonchi . 4- Cardiovascular : regular rate and rhythem , S1 , S2 , no S3 , no S4. 5- Gastrointestinal: abdomen soft no tenderness , bowel sounds positive all four quadrents , no organomegally . 6- Genitourinary: Defferred . 7-Integumentary: No cellulitis , no ulcers , normal skin turgor , no cyanotic . 8- neurologic : Cranial nerve II to XII intact , no focal neurological deffecit . 9- Psychatric: alert , oriented X 3 , appropriate affect , intact judgment and insight . 10-Lymphatic : no Lymphadenopathy . 11- musculoskeltal: normal gait , exams of the cervical spine = decrease motor stregnth in the deltoid and biceps. decrease motor stregnth biceps and the wrist extensors. decrease motor stregnth in the triceps muscle . deep tendon reflexes normal at the biceps , normal at Brachioradialis , normal , decreas at triceps. positive cervical facet loading test on the left side Positive tenderness over the left occipital nerve. No swelling, no erythema, no discharge in the cervical area. exams of the Lumber spine = normal moter stegnth lower extremities ,thigh and legs 5/5 Assessment and Plan Plan: Assessment and plan= chronic low back pain secondary to lumbar degenerative disc disease , lumbar spondylosis with lumbar facet arthropathy . Pain improved after radiofrequency of the medial branches. Chronic severe neck pain, contrary to cervical spondylosis with facet arthropathy, cervicogenic headache, occipital neuralgia Currently is complaining of severe neck pain and headache on the left side , he will be good candidate to have repeat radiofrequency ablation of the medial branch cervical area Left C2-3/ C3-4 / and the left third occipital nerve. Also patient could benefit from Voltaren gel 1% to be applied to the left side of the neck bid Time with Patient: Less than 30 PQRS Measure Charge Sheet Measure #130: Documentation of Current Meds in Medical Chart: Patient's medications documented in chart Measure #226: Tobacco Use: Screen & Cessation Intervention: Pt not a tobacco user Measure #111: Pneumonia Vaccination: Pneumococcal vaccine administered or previously received Measure #47: Advance Care Plan: Advance care planning discussed & documented, pt chose/unable to give Measure #412: Opioid Treatment Agreement: No documentation of signed opioid treatment agreement Measure #408: Opioid Therapy Follow-up Evaluation: Patient had NO f/u eval minimum every 3 months during opioid therapy Measure #317: Preventitive Care & Scrn High Bld Press & F/U: Normal blood pressure, f/u not required Measure #128: Body Mass Index (BMI) Screening & Follow-up: BMI documented ABOVE normal parameters - f/u documented Measure #131: Pain Assessment & Follow-up: Pain positive & plan documented, Follow-up scheduled Measure #431: Unhealthy Alcohol Use Preventative Care & Scrn: Patient not identified as an unhealthy alcohol user PQRS Narrative: Smoking Status Former smoker Do You Want the Pneumonia Vaccine Up to Date Vaccine AT THIS TIME? Pain Intensity [Left Posterior 3 Neck] Scale Used Numeric (1 - 10) Hx Alcohol Use (MH) No Home Medications: Ambulatory Orders Amitriptyline HCl [Elavil] 25 mg PO HS 08/29/14 FLUoxetine HCL [PROzac] 40 mg PO DAILY 08/29/14 Gabapentin 800 mg PO DAILY 08/29/14 Simvastatin [Zocor] 20 mg PO HS 08/29/14 metFORMIN HCL [Glucophage] 1,000 mg PO BID 08/29/14 Dexlansoprazole [Dexilant] 60 mg PO DAILY 06/24/17 Gabapentin 1,600 mg PO HS 06/24/17 Pioglitazone [Actos] 15 mg PO DAILY 06/24/17 Dulaglutide [Trulicity] 0.75 mg SQ MO 02/16/18 Naproxen [Naprosyn] 500 mg PO DIRECTED PRN 04/28/18 tiZANidine HCL [Zanaflex] 4 mg PO Q12HR PRN #60 tab 04/28/18 Controlled Substance Measures - Controlled Substance Measures Is patient prescribed a controlled substance at discharge?: No When asked, does pt state using other controlled substances?: No If prescribed controlled substance>3 days was MAPS reviewed?: No If Rx opioid, was Start Talking consent form obtained?: No If opioid is for acute pain is fill amount 7 days or less?: No Was information provided regarding opioid addiction?: No
== END | disposition home or self-care (01) ==
LOC: PNWHC3 14:08
PROVIDERS: ATTEND Specialist
DX: G89.29 Other chronic pain (principal); M54.2 Cervicalgia; M47.812 Spondylosis without myelopathy or radiculopathy, cervical region; M54.81 Occipital neuralgia; M46.82 Other specified inflammatory spondylopathies, cervical region; M51.36 Other intervertebral disc degeneration, lumbar region; M47.816 Spondylosis without myelopathy or radiculopathy, lumbar region; M46.86 Other specified inflammatory spondylopathies, lumbar region; Z79.891 Long term (current) use of opiate analgesic; Z79.1 Long term (current) use of non-steroidal anti-inflammatories (NSAID); Z87.891 Personal history of nicotine dependence
CPT/HCPCS: 99211

== ENCOUNTER 2018-08-10 06:40 | Day surgery (SDC) | payer MEDICARE ==
[2018-08-04 16:08] VITALS: BMI 31.9
[2018-08-10 07:18] VITALS: TEMP 97.2
[2018-08-10] MEDS ORDERED: LIDOCAINE 1% 20 ML VIAL (10MG/ML) FOR IV START INTRADERMA ONE (07:26)
[2018-08-10 07:30] LABS: Glucose,Whole Blood 133 mg/dL (75-99)
--- NOTE | 2018-08-10 08:10 | P.PCN ---
Date of Procedure: 08/10/18 Procedure(s) Performed: PREOPERATIVE DIAGNOSIS:1- Cervical Facet Arthropathy. 2-cervicogenic headache. 3-occipital neuralgia POSTOPERATIVE DIAGNOSIS: 1- Cervical Facet Arthropathy. 2-cervicogenic headache. 3-occipital neuralgia PROCEDURES: 1- Radiofrequency thermocoagulation, left side C2-3, C3-4 medial branch with Fluroscopy Guidence 2-radiofrequency thermocoagulation of the left side third occipital nerve under fluoroscopy guidance ANESTHESIA: Local with 1% lidocaine 3 ml Versed. 4 mg EBL: Minimal PROCEDURE INDICATION: The patient with neck pain secondary to cervical arthropathy and neck pain and headache who had more than 50% relief of her pain with previous diagnostic cervical medial branch block. patient had the radiofrequency done in the past and he had good pain relief lasted more than 6 months PROCEDURE DESCRIPTION / TECHNIQUE: The patient was seen and identified in the preoperative area. Risks, benefits, complications, and alternatives were discussed with the patient, the patient agreed to proceed with the procedure and signed the consent. IV was started. Vital signs remained stable throughout the procedure. Patient was taken to the OR and time out was completed. The patient was placed in the prone position on the procedure table. A pillow was placed under the patients chest to increase the cervical interlaminar space. The cervical area was prepped and draped in the usual sterile fashion. Critical pause was taken. Vital signs were closely monitored during the procedure. Conscious sedation was used during the procedure to decrease patients anxiety. Using cross-table lateral fluoroscopy, the centroid of the trapezoid of Left C2 ,C3, were identified, marked, and localized with 1% lidocaine. Subsequently , a 20 [id number] radiofrequency cannula with a 10-mm active tip was advanced guided by fluoroscopy to the centroid of the trapezoid of Left C2 , C3, . Needle tip position was confirmed at the centroid of the trapezoids of Left C2 ,C3, with anteroposterior fluoroscopy. Each site then underwent sensory testing at 50 Hz and 0 to 1 volt and motor testing at 2 Hz and 0 to 3 volt with local stimulation, but no radicular symptoms down the arm. Thereafter Left C2-3 ,C3-4 ,sites underwent radiofrequency thermocoagulation at 80 degrees celsius for 90 seconds after injecting 0.5 ml of PF lidocaine 1%. After thermocoagulation, 1 ml of the block solution containing Kenalog 40 mg and 2 mL of preservative-free Marcaine 0.5% was injected at the left C2-3, C3-4, levels after negative aspiration of CSF and blood and with no paresthesias. To do the radiofrequency ablation on the left side 3rd occipital nerve 20-gauge radiofrequency active tip were then placed at the center of the facet joint that is formed between the C2 and C3 vertebra placement confirmed with AP and lateral view and recheck for the sensory testing at 0.5 volts was positive on the checked for the motor stimulation at 2.5 V which was positive for localized contractions in the cervical area on the was no contractions in the upper extremities and the radiofrequency done at 80C for 90 seconds , and before the needles taken out Marcaine 0.5% and 20 mg of Kenalog injected after negative aspiration and there was no paresthesia during the injection COMPLICATIONS: No acute complications DISPOSITION / PLANS: The patient was placed in a supine position and transferred to the recovery area in a stable condition for observation and was discharged from the recovery room after meeting discharge criteria. Home discharge instructions given to the patient by the staff. The patient was reexamined prior to discharge. The patient will schedule a follow up in the clinic in 2-4 weeks.
[2018-08-10 08:34] VITALS: BP 135/87; PULSE 81; RESP 18
[2018-08-10] MEDS ORDERED: IV FLUID CONTINUATION 1,000 ML IV ONE (08:43)
--- NOTE | 2018-08-10 10:27 | FL ---
EXAMINATION TYPE: FL guided pain mgmt statistic DATE OF EXAM: 08/10/2018 HISTORY: Flouroscopy time 27 seconds of fluoroscopy provided. IMPRESSION: 1. Fluoroscopy time.
== END 2018-08-10 08:47 | disposition home or self-care (01) ==
LOC: ORPAIN 06:40
PROVIDERS: ATTEND Specialist
DX: M47.812 Spondylosis without myelopathy or radiculopathy, cervical region (principal); M54.81 Occipital neuralgia
CPT/HCPCS: 64640; 64633; 64634; J2250; J3301; 64636; 99152

== ENCOUNTER → 2018-09-07 | Outpatient (CLI) | payer MEDICARE ==
[2018-09-07 12:26] VITALS: BP 137/77; PULSE 95; RESP 18
--- NOTE | 2018-09-08 07:53 | P.PAINPG ---
Subjective Progress Note Date: 09/07/18 This 67 years old man with a chronic history of severe neck pain and headache, they) with cervicogenic headache, occipital neuralgia, cervical spondylosis with cervical facet arthropathy, we have done diagnostic medial branch block cervical area which was positive R median radiofrequency ablation of the medial branch cervical area, the radiofrequency ablation done more than a year ago, he continued to have ,no pain over the right side, but was complaining of severe neck pain on the left side associated with severe headache, a few weeks ago we did radiofrequency ablation of the left side C2 3, C3 4, and the third occipital nerve, she reported that the radiofrequency on the left help his neck pain, but he continue to feels that his left side of the neck is swollen, MRI of the cervical spine ,and MRI and the computed tomography scan of the cervical spine that did not show any infection or fluid collection. Patient denies any motor ,or sensory deficit he denies any numbness ,or tingling sensation in the upper extremity, he denies any fever or night sweats, denies any discharge , from the cervical area. Also patient being diagnosed with lumbar spondylosis, and we did radiofrequency ablation of the medial branch lumbar area he reported that his pain improved significantly after the radiofrequency of the medial branch lumbar area, he denies any change in the bowel movement or urination patient currently on Zanaflex 4 mg every 12 hours naproxen 500 mg when necessary ,and Neurontin 1600 mg daily at bedtime and 800 mg daily Physical Examinations : 1-Constitutional : Cooperative , not in acute distress . 2-HEENT: nech ; supple , no Lymphadenopathy , no Thyromegaly , normal thyroid size eyes : no ptosis , no icterus, no photophobia . ENT : normal / hard of hearing , normal oropharynx , no Thrush . 3- Respiratory : Chest clear to auscultations Bilaterally , no wheezing , no Rhonchi . 4- Cardiovascular : regular rate and rhythem , S1 , S2 , no S3 , no S4. 5- Gastrointestinal: abdomen soft no tenderness , bowel sounds positive all four quadrents , no organomegally . 6- Genitourinary: Defferred . 7-Integumentary: No cellulitis , no ulcers , normal skin turgor , no cyanotic . 8- neurologic : Cranial nerve II to XII intact , no focal neurological deffecit . 9- Psychatric: alert , oriented X 3 , appropriate affect , intact judgment and insight . 10-Lymphatic : no Lymphadenopathy . 11- musculoskeltal: normal gait , exams of the cervical spine = decrease motor stregnth in the deltoid and biceps. decrease motor stregnth biceps and the wrist extensors. decrease motor stregnth in the triceps muscle . deep tendon reflexes normal at the biceps , normal at Brachioradialis , normal , decreas at triceps. positive cervical facet loading test on the left side Positive tenderness over the left occipital nerve. No swelling, no erythema, no discharge in the cervical area. exams of the Lumber spine = normal moter stegnth lower extremities ,thigh and legs 5/5 Assessment and plan= chronic low back pain secondary to lumbar degenerative disc disease , lumbar spondylosis with lumbar facet arthropathy . Pain improved after radiofrequency of the medial branches. Chronic severe neck pain, contrary to cervical spondylosis with facet arthropathy, cervicogenic headache, occipital neuralgia neck pain and headache on the left side improved after the radiofrequency , he continued to feel swelling and fullness on the left side of the neck I will order an ultrasound of the left side of the neck , to rule out any fluid collection , Patient given prescription refill for Zanaflex 4 mg every 12 hours , dispense 60 with 3 refills, and patient will be seen in the pain clinic in 1-2 months. Objective - Vital Signs Vital signs: Vital Signs Temp Pulse 95 09/07/18 12:16 Resp 18 09/07/18 12:16 BP 137/77 09/07/18 12:16 Pulse Ox 95 09/07/18 12:16 Intake & Output 09/07/18 09/08/18 09/08/18 18:59 06:59 18:59 Weight 103.873 kg PQRS Measure Charge Sheet Measure #130: Documentation of Current Meds in Medical Chart: Patient's medications documented in chart Measure #226: Tobacco Use: Screen & Cessation Intervention: Pt not a tobacco user Measure #111: Pneumonia Vaccination: Pneumococcal vaccine administered or previously received Measure #47: Advance Care Plan: Advance care planning discussed & documented, pt chose/unable to give Measure #412: Opioid Treatment Agreement: No documentation of signed opioid treatment agreement Measure #408: Opioid Therapy Follow-up Evaluation: Patient had NO f/u eval minimum every 3 months during opioid therapy Measure #317: Preventitive Care & Scrn High Bld Press & F/U: Normal blood pressure, f/u not required Measure #128: Body Mass Index (BMI) Screening & Follow-up: BMI documented ABOVE normal parameters - f/u documented Measure #131: Pain Assessment & Follow-up: Pain positive & plan documented, Follow-up scheduled Measure #431: Unhealthy Alcohol Use Preventative Care & Scrn: Patient not identified as an unhealthy alcohol user PQRS Narrative: Smoking Status Former smoker Do You Want the Pneumonia Yes Vaccine AT THIS TIME? Blood Pressure 137/77 Pain Intensity [Neck] 0 Scale Used Numeric (1 - 10) Hx Alcohol Use (MH) No Home Medications: Ambulatory Orders Amitriptyline HCl [Elavil] 25 mg PO HS 08/29/14 FLUoxetine HCL [PROzac] 40 mg PO DAILY 08/29/14 Gabapentin 800 mg PO DAILY 08/29/14 Simvastatin [Zocor] 20 mg PO HS 08/29/14 metFORMIN HCL [Glucophage] 1,000 mg PO BID 08/29/14 Dexlansoprazole [Dexilant] 60 mg PO DAILY 06/24/17 Gabapentin 1,600 mg PO HS 06/24/17 Pioglitazone [Actos] 15 mg PO DAILY 06/24/17 Dulaglutide [Trulicity] 0.75 mg SQ MO 02/16/18 Naproxen [Naprosyn] 500 mg PO DIRECTED PRN 04/28/18 tiZANidine HCL [Zanaflex] 4 mg PO Q12HR PRN #60 tab 04/28/18 Controlled Substance Measures - Controlled Substance Measures Is patient prescribed a controlled substance at discharge?: No When asked, does pt state using other controlled substances?: No If prescribed controlled substance>3 days was MAPS reviewed?: No If Rx opioid, was Start Talking consent form obtained?: No If opioid is for acute pain is fill amount 7 days or less?: No Was information provided regarding opioid addiction?: No
== END | disposition home or self-care (01) ==
LOC: PNWHC3 12:02
PROVIDERS: ATTEND Specialist
DX: G89.29 Other chronic pain (principal); M47.812 Spondylosis without myelopathy or radiculopathy, cervical region; M46.92 Unspecified inflammatory spondylopathy, cervical region; M54.81 Occipital neuralgia; M51.36 Other intervertebral disc degeneration, lumbar region; M47.816 Spondylosis without myelopathy or radiculopathy, lumbar region; M46.96 Unspecified inflammatory spondylopathy, lumbar region; Z87.891 Personal history of nicotine dependence; Z79.899 Other long term (current) drug therapy; Z79.84 Long term (current) use of oral hypoglycemic drugs; Z98.890 Other specified postprocedural states
CPT/HCPCS: 99211

== ENCOUNTER → 2018-09-21 | Outpatient (CLI) | payer MEDICARE ==
--- NOTE | 2018-09-21 13:57 | US ---
EXAMINATION TYPE: US thyroid st tissue head/neck DATE OF EXAM: 09/21/2018 COMPARISON: NONE CLINICAL HISTORY: cervical fluid collection. Patient feels swelling left posterior neck No abnormality visualized at the patient's area of swelling. No suspicious solid or cystic mass. No s ubcutaneous emphysema. No evidence of abscess. IMPRESSION: No sonographic finding to correspond to the patient's palpable abnormality.
== END | disposition home or self-care (01) ==
LOC: RADUSWWP 13:23
PROVIDERS: ATTEND Specialist
DX: M25.48 Effusion, other site (principal)
CPT/HCPCS: 76536

== ENCOUNTER 2022-10-07 07:43 | Day surgery (SDC) | payer MEDICARE ==
[2022-10-02 15:46] VITALS: BMI 30.4
[2022-10-07 08:12] VITALS: TEMP 97.2
[2022-10-07 08:26] LABS: Glucose,Whole Blood 129 mg/dL (70-110)
[2022-10-07] MEDS ORDERED: PROPOFOL 10 MG/ML 20 ML VIAL IV ONE (08:55)
--- NOTE | 2022-10-07 09:22 | P.PCN ---
Date of Procedure: 10/07/22 Procedure(s) Performed: BRIEF HISTORY: Patient is a 71-year-old pleasant white male scheduled for an elective colonoscopy as a part of evaluation of prior history of colon polyps. Patient is status post right hemicolectomy because of large colon polyp several years ago. ROCEDURE PERFORMED: Colonoscopy. PREOPERATIVE DIAGNOSIS: history of colon polyps IV sedation per Anesthesia. PROCEDURE: After informed consent was obtained, the patient, was brought into the endoscopy unit. IV sedation was administered by Anesthesia under continuous monitoring. Digital rectal examination was normal. Initially the Olympus CF-160 flexible video colonoscope was then inserted in the rectum, gradually advanced into the right colon without any difficulty. Careful examination was performed as the scope was gradually being withdrawn. The ileocolic anastomosis was visualized and appeared normal. Prep was fair. Mucosa of the ascending colon, transverse colon, descending colon, sigmoid colon, and rectum appeared normal. Retroflexion was performed in the rectum and no lesions were seen. At her sigmoid diverticulosis seen. The patient tolerated the procedure well. IMPRESSION: Normal-appearing colon from rectum to ileocolic anastomosis in the right colon Scattered sigmoid diverticulosis RECOMMENDATIONS: Findings of this examination were discussed with the patient as well as his family. He was advised to have a repeat colonoscopy in 5 years from now because of prior history of colon polyps
[2022-10-07 10:03] VITALS: BP 134/76; PULSE 75; RESP 16
== END 2022-10-07 10:10 | disposition home or self-care (01) ==
LOC: ORWHC2ENDO 07:43
PROVIDERS: ATTEND Internal Medicine Gastroenterology
DX: Z12.11 Encounter for screening for malignant neoplasm of colon (principal); Z86.010 Personal history of colon polyps; K57.30 Diverticulosis of large intestine without perforation or abscess without bleeding
CPT/HCPCS: J2704; G0105; 45378

== ENCOUNTER → 2024-12-15 | Outpatient (CLI) | payer MEDICARE ==
[2024-12-15 12:55] VITALS: BP 114/69; PULSE 46; RESP 18; TEMP 97.8
--- NOTE | 2024-12-15 14:00 | XR ---
EXAMINATION TYPE: XR cervical spine limited DATE OF EXAM: 12/15/2024 1:26 PM COMPARISON: None CLINICAL INDICATION: Male, 74 years old with history of M54.12 RADICULOPATHY, CERVICAL REGION; , pain TECHNIQUE: XR cervical spine limited, (frontal lateral and odontoid views) of the cervical spine FINDINGS: The osseous structures show normal alignment without evidence of an acute fracture. There are osteoph ytes noted throughout the cervical spine on the anterior and lateral aspects of the vertebral bodies. The intervertebral disk spaces are narrowed at multiple levels Pedicles are intact. Soft tissues ar e within normal limits. The odontoid appears intact. IMPRESSION: 1. No fracture or dislocation. 2. Mild degenerative disc disease changes of the cervical spine. [facility], , 12/15/2024 1:58 PM
--- NOTE | 2024-12-15 15:43 | P.PAINPG ---
PQRS Measure Charge Sheet Comment: HISTORY OF PRESENT ILLNESS: A 74 yr old male w male family member at side as a referral from [facility] presents today w severe and chronic neck pain > 3 mo secondary to radiculopathy, spondylosis and facet arthropathy without myelopathy for evaluation. Pt states pain level is provoked at 9 /10 in intensity, constant, localized in the cervical spine, predominantly axial, achy in character w occasional shooting pain towards the UEs. Pain is provoked by lifting. Pain is alleviated by PT x 6 wks which ended in 2022, physician guided home stretches daily since 2022, medications (Neruontin, Tyl, Advil), topical BioFreeze spray, use of a cane for ambulatory assistance, repositioning and rest . Cervical disability score at 32. PMH: OA, HTN, Hyperlipidemia, NIDDM II, MDD, Occipital Neuralgia, GERD, Iron Deficiency Anemia, L Cervicogenic ACUÑA PSH: Knee Surgery, Appendectomy, Colectomy, Bladder Surgery, Hernia Surgery, BL CTR, L RFA C2-C4 (2014, 2017), BL RFA L2-L5 (2017) SH: Hx tobacco use, No ETOH use, No illicit drug use FH: Non contributory All: See list Meds: See list REVIEW OF ORGAN SYSTEMS: CONSTITUTIONAL: No fevers or chills. No recent weight loss. NEUROLOGICAL: + numbness and tingling along the distal extremities. No seizure disorders or headaches. MUSCULOSKELETAL: + pain PSYCHIATRIC: Denies current depression or suicidal thoughts. Physical Examinations : Constitutional : Cooperative , not in acute distress . Neurologic : Cranial nerve II to XII intact. No focal neurological deficits. Psychiatric : alert & oriented x 3. Matching mood & appropriate affect. Judgment & insight intact. Musculoskeletal : Cervical Spine Motor strength in the deltoid and biceps: Normal right side. Normal Left side Motor strength biceps and the wrist extensors: Normal right side . Normal left side Motor strength in the triceps muscle: Normal right side. Normal left side Deep tendon reflexes: Normal at the biceps. Normal at Brachioradialis. Normal at triceps Vertebral body tenderness to deep palpation over C6 Cervical facet loading test: positive bilaterally Spurling test: positive bilaterally Neck distraction test: positive bilaterally Carmen sign: positive bilaterally Lumbar spine Motor strength lower extremities ,thigh and legs 5/5 Right side , 5/5 Left side Deep tendon reflexes : Normal Knee Jerk. Normal Ankle Jerk Vertebral body tenderness over Streeter Test positive Lumbar facet Loading Test: positive Right / positive Left Range of motion of the lumbar spine Flexion 30 degrees, extension 10 degrees Straight Leg Raise test: Left/ Right positive at degrees Sincere test: positive right / positive left. Severe tenderness over the Sacroiliac joint on the Right / Left sides Gaenslen test: positive bilaterally Seated flexion test: positive bilaterally. Sacral spine : Severe tenderness over the Sacroiliac joint: right side / left side Range of motion: Flexion of the lumbar spine <60 degrees Range of motion: Extension of the lumbar spine <20 degrees Gaenslen's Test positive Sincere test: positive right side / left side Thigh Thrust Test Sacral Thrust Test Imaging: None on file Assessment/ Plan : Cervical radiculopathy Recommendation of cervical x ray, PT x 6 wks M54.12. Diclofenac gel 3% apply on AA BID for pain. Use, side effects, adverse reactions, safe storage discussed. All questions answered. I have spent greater than 30 minutes on patient care today. Dr Betts was available by phone for the evaluation of this patient. The time was used to review the medical records including relevant urine studies and Prescription history (MAPs), review of the available imaging, evaluation and examination of the patient, coordination of care with the medical staff and if applicable referring physicians, as well as creation of the medical record - Pain Location Bilateral Shoulder Pharmacological Interventions: Topical Medication PQRS Narrative: Smoking Status Former smoker Hx Alcohol Use (MH) No Home Medications: Ambulatory Orders Amitriptyline HCl [Elavil] 50 mg PO HS 08/29/14 Gabapentin 800 mg PO QAM 08/29/14 Simvastatin [Zocor] 20 mg PO HS 08/29/14 metFORMIN HCL [Glucophage] 1,000 mg PO BID 08/29/14 Gabapentin 1,600 mg PO HS 06/24/17 Dulaglutide [Trulicity] 0.75 mg SQ MO 02/16/18 Aspirin [Adult Low Dose Aspirin EC] 81 mg PO DAILY 10/02/22 Empagliflozin [Jardiance] 25 mg PO DAILY 10/02/22 FLUoxetine HCL 20 mg PO QAM 10/02/22 Ferrous Sulfate [Iron] 325 mg PO DAILY 10/02/22 Pioglitazone [Actos] 30 mg PO DAILY 10/02/22 Diclofenac Sodium Gel [Voltaren 1% Gel] 50 gm TOPICAL BID 30 Days #1 each 12/15/24 Controlled Substance Measures - Controlled Substance Measures Is patient prescribed a controlled substance at discharge?: No
== END ==
LOC: PNWHC3 12:17
PROVIDERS: ATTEND Specialist
DX: M54.12 Radiculopathy, cervical region (principal); Z88.6 Allergy status to analgesic agent; Z88.5 Allergy status to narcotic agent; Z88.1 Allergy status to other antibiotic agents; Z87.891 Personal history of nicotine dependence
CPT/HCPCS: 72040; G0463; 99202

== ENCOUNTER → 2024-12-23 | Outpatient (CLI) | payer MEDICARE ==
--- NOTE | 2024-12-23 14:48 | MR ---
EXAMINATION TYPE: MR cervical spine wo con DATE OF EXAM: 12/23/2024 2:35 PM COMPARISON: 06/17/2017. CLINICAL INDICATION: Male, 74 years old with history of M54.12 RADICULOPATHY, CERVICAL REGION; PHH, N adis pain into yadira upper extremities TECHNIQUE: Multi planar, multi sequence imaging was performed utilizing: T1-weighted, T2-weighted, an d turbo inversion recovery imaging of the cervical spine. IV Contrast: mL (None, if empty) FINDINGS: Alignment: The cervical vertebral bodies have preserved heights. Alignment is within normal limits gi brenda patient positioning. Bones: Osteophytes and disc space narrowing most pronounced at the C5-C7 vertebral levels. Cord: The spinal cord is unremarkable with regards to their signal intensity and morphology. Discs: Intervertebral disc signal is maintained. C2-C3: No significant disc pathology. The spinal canal is patent. Bilateral facet and uncovertebral joint arthropathy are present with mild bilateral neural foraminal stenosis. C3-C4: No significant disc pathology. The spinal canal is patent. Bilateral facet and uncovertebral joint arthropathy are present with moderate bilateral neural foraminal stenosis. C4-C5: A disc osteophyte complex is present which minimally narrows the ventral subarachnoid space. Bilateral facet and uncovertebral joint arthropathy are present with mild bilateral neural foraminal stenosis. C5-C6: No significant disc pathology. The spinal canal is patent. Bilateral facet and uncovertebral joint arthropathy are present with moderate left neural foraminal stenosis. The right neural foramen is patent. C6-C7: No significant disc pathology. The spinal canal is patent. No neural foraminal stenosis. C7-T1: No significant disc pathology. The spinal canal is patent. No neural foraminal stenosis. Other: None. IMPRESSION: 1. No evidence for disc herniation or significant spinal canal stenosis. 2. Multilevel disc degeneration with associated osteoarthritic changes. Neural foraminal stenosis wor se at C3-C4 with moderate bilateral stenosis. [facility], , 12/23/2024 2:46 PM
== END | disposition home or self-care (01) ==
LOC: RADMRIMAIN 14:08
PROVIDERS: ATTEND Specialist
DX: M48.02 Spinal stenosis, cervical region (principal); M47.22 Other spondylosis with radiculopathy, cervical region
CPT/HCPCS: 72141

== ENCOUNTER → 2025-01-26 | Outpatient (CLI) | payer MEDICARE ==
[2025-01-26 14:03] VITALS: RESP 16; TEMP 97.1
[2025-01-26 14:14] VITALS: BP 138/61; PULSE 47
--- NOTE | 2025-01-26 15:09 | P.PAINPG ---
PQRS Measure Charge Sheet Comment: HISTORY OF PRESENT ILLNESS: A 74 yr old male w male family member at side presents today w severe and chronic neck pain > 3 mo secondary to radiculopathy, spondylosis and facet arthropathy without myelopathy for evaluation. Pt states pain level is provoked at 7 /10 in intensity, constant, localized in the cervical spine, predominantly axial, achy in character w occasional shooting pain towards the UEs. Pain is provoked by lifting. Pain is alleviated by PT x 5 wks (cerv) which he is currently in, physician guided home stretches daily since 2022, medications, topical, use of a cane for ambulatory assistance, repositioning and rest . Interventional procedures include Medications include Neurontin, Tyl, Advil, BioFreeze REVIEW OF ORGAN SYSTEMS: CONSTITUTIONAL: No fevers or chills. No recent weight loss. NEUROLOGICAL: + numbness and tingling along the distal extremities. No seizure disorders or headaches. MUSCULOSKELETAL: + pain PSYCHIATRIC: Denies current depression or suicidal thoughts. Physical Examinations : Constitutional : Cooperative , not in acute distress . Neurologic : Cranial nerve II to XII intact. No focal neurological deficits. Psychiatric : alert & oriented x 3. Matching mood & appropriate affect. Judgment & insight intact. Musculoskeletal : Cervical Spine Motor strength in the deltoid and biceps: Normal right side. Normal Left side Motor strength biceps and the wrist extensors: Normal right side . Normal left side Motor strength in the triceps muscle: Normal right side. Normal left side Deep tendon reflexes: Normal at the biceps. Normal at Brachioradialis. Normal at triceps Vertebral body tenderness to deep palpation over C6 Cervical facet loading test: positive bilaterally Spurling test: positive bilaterally Neck distraction test: positive BL C6- C7 Carmen sign: positive bilaterally Lumbar spine Motor strength lower extremities ,thigh and legs 5/5 Right side , 5/5 Left side Deep tendon reflexes : Normal Knee Jerk. Normal Ankle Jerk Vertebral body tenderness over Streeter Test positive Lumbar facet Loading Test: positive Right / positive Left Range of motion of the lumbar spine Flexion 30 degrees, extension 10 degrees Straight Leg Raise test: Left/ Right positive at degrees Sincere test: positive right / positive left. Severe tenderness over the Sacroiliac joint on the Right / Left sides Gaenslen test: positive bilaterally Seated flexion test: positive bilaterally. Sacral spine : Severe tenderness over the Sacroiliac joint: right side / left side Range of motion: Flexion of the lumbar spine <60 degrees Range of motion: Extension of the lumbar spine <20 degrees Gaenslen's Test positive Sincere test: positive right side / left side Thigh Thrust Test Sacral Thrust Test Imaging: MRI non contrast cervical spine from 12/23/24 reviewed Assessment/ Plan : C3-C4 radiculopathy, Cervical spondylosis Recommendation of PHILIP C6-C7 #1 Risks, benefits of procedure discussed and pt verbalized understanding. Protocol for discontinuation/ continuation of medications brenda procedure discussed. Ample supply of Diclofenac gel 3% apply on AA BID for pain. Use, side effects, adverse reactions, safe storage discussed. All questions answered. I have spent greater than 30 minutes on patient care today. Dr Betts was available by phone for the evaluation of this patient. The time was used to review the medical records including relevant urine studies and Prescription history (MAPs), review of the available imaging, evaluation and examination of t he patient, coordination of care with the medical staff and if applicable referring physicians, as well as creation of the medical record PQRS Narrative: Smoking Status Former smoker Hx Alcohol Use (MH) No Home Medications: Ambulatory Orders Amitriptyline HCl [Elavil] 50 mg PO HS 08/29/14 Gabapentin 800 mg PO QAM 08/29/14 Simvastatin [Zocor] 20 mg PO HS 08/29/14 metFORMIN HCL [Glucophage] 1,000 mg PO BID 08/29/14 Gabapentin 1,600 mg PO HS 06/24/17 Dulaglutide [Trulicity] 0.75 mg SQ MO 02/16/18 Aspirin [Adult Low Dose Aspirin EC] 81 mg PO DAILY 10/02/22 Empagliflozin [Jardiance] 25 mg PO DAILY 10/02/22 FLUoxetine HCL 20 mg PO QAM 10/02/22 Ferrous Sulfate [Iron] 325 mg PO DAILY 10/02/22 Pioglitazone [Actos] 30 mg PO DAILY 10/02/22 Diclofenac Sodium Gel [Voltaren 1% Gel] 50 gm TOPICAL BID 30 Days #1 each 12/15/24 Controlled Substance Measures - Controlled Substance Measures Is patient prescribed a controlled substance at discharge?: No
== END ==
LOC: PNWHC3 13:42
PROVIDERS: ATTEND Specialist
DX: M47.22 Other spondylosis with radiculopathy, cervical region (principal); Z88.6 Allergy status to analgesic agent; Z88.5 Allergy status to narcotic agent; Z88.1 Allergy status to other antibiotic agents; Z87.891 Personal history of nicotine dependence
CPT/HCPCS: 99211

== ENCOUNTER 2025-02-03 09:52 | Day surgery (SDC) | payer MEDICARE ==
[2025-02-03 10:09] VITALS: RESP 18; TEMP 97.8
[2025-02-03 10:14] LABS: Glucose,Whole Blood 139 mg/dL (70-110)
[2025-02-03] MEDS ORDERED: DEXAMETHASONE SOD PHOSPHATE 10 MG/ML 1 ML VIAL ONE (10:35)
[2025-02-03] MEDS ORDERED: IOPAMIDOL M300 15ML VIAL ONE (10:35)
[2025-02-03 10:59] VITALS: BP 131/83; PULSE 85
--- NOTE | 2025-02-03 11:05 | P.PCN ---
Description of Procedure: PROCEDURE 1. Injection of radio contrast material into cervical epidural space, cervical epidurogram, interpretation of cervical epidurogram, Cervical epidural steroid injection under fluoroscopic guidance, C6-7 (fluoroscopy images available in the radiology department ) 2. Cervical epidurogram. PREOPERATIVE DIAGNOSIS: 1- Cervical Degenerative Disc Diseases 2- Cervical radiculopathy., 3-cervical spondylosis with cervical Facet arthropathy without myelopathy.4-cervical spinal stenosis POSTOPERATIVE DIAGNOSIS: : 1- Cervical Degenerative Disc Diseases , 2- Cervical radiculopathy. 3-,cervical spondylosis with cervical Facet arthropathy without myelopathy. 4-cervical spinal stenosis ANESTHESIA: Local anesthetics infiltration. In the OR continuous pulse ox, EKG, blood pressure and verbal communication was maintained. EBL : None PROCEDURE INDICATION: The patient with neck pain and radiculitis unresponsive to conservative treatment consents for procedure. Discussed the procedure, alternatives and possible complications which may include increased pain, infection, bleeding, nerve damage, paralysis all of which could be permanent. Patient understands and all questions were answered. PROCEDURE DESCRIPTION : After getting consent patient was taken to the OR , positioned in prone position and time out was completed. A pillow was placed under the patients chest to increase the cervical interlaminar space. The cervical area was prepped and draped in the usual sterile fashion. Using anterior-posterior fluoroscopy, interlaminar space was identified and the skin over this site was marked and then infiltrated with 1% lidocaine subcutaneously. Subsequently, a 20-gauge 3-1/2-inch Tuohy epidural needle was inserted and advanced toward the epidural space with the loss of resistance technique using a syringe filled with preservative-free normal saline and guided by AP and lateral fluoroscopy. Negative CSF, negative blood, negative paresthesia. The correct needle position in the epidural space was verified with the injection of 2 mL of the water soluble contrast dye [id number] and observing an excellent epidurogram with the epidural spread of the dye, after repeat negative aspiration 3 mL solution was injected which consists of 1 mL of preservative-free normal saline mixed with 2 mL of 20 mg dexamethasone and a washout of epidurogram was seen. Needle was withdrawn intact, skin was cleansed, and bandages were applied. Disposition: Patient tolerated the procedure well. No complication. Patient was placed in supine position and transferred to the recovery room area in stable condition and there was no evidence of upper or lower extremity motor or sensory deficit after the procedure patient was discharged from recovery room after discharge criteria met and home discharge instructions was given by the staff and patient will follow with the pain clinic in 2-4 weeks
--- NOTE | 2025-02-03 11:06 | FL ---
EXAMINATION TYPE: FL guided pain mgmt statistic DATE OF EXAM: 02/03/2025 CLINICAL INDICATION: Male, 74 years old with history of TOREY NECK PAIN; PHH, pain TECHNIQUE: Fluoroscopy. COMPARISON: None. FINDINGS: Fluoroscopic guidance was provided during pain relief procedure performed by Dr. Peterson . A total of 23.9 seconds of fluoroscopic time was utilized during the procedure and one image was acqu ired. Image acquired shows needle localization posteriorly at level of the lower cervical spine. Degeneration changes of the visualized joints. Total DAP: [id number] mGym2. IMPRESSION: As Above. [facility], , 02/03/2025 11:03 AM
== END 2025-02-03 11:19 | disposition home or self-care (01) ==
LOC: ORPAIN 09:52
PROVIDERS: ATTEND Pain Medicine Interventional Pain Medicine
DX: M50.123 Cervical disc disorder at C6-C7 level with radiculopathy (principal); M47.22 Other spondylosis with radiculopathy, cervical region; M48.02 Spinal stenosis, cervical region
CPT/HCPCS: 62321; J1100; Q9967

== ENCOUNTER → 2025-02-20 | Outpatient (CLI) | payer MEDICARE ==
[2025-02-20 15:02] VITALS: BP 138/87; PULSE 94; RESP 16; TEMP 98
--- NOTE | 2025-02-20 15:24 | P.PAINPG ---
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 Pt states he experienced 50% pain relief x 2 wks s/p procedure. Pt states he underwent a BL RFA C2-C3/ C3-C4 in 2016 where he experienced 95% pain relief x 3 yrs s/p procedure. He would've returned for repeat RFA except he had concerns in the post-covid period. Pt states pain level is provoked at 7 /10 in intensity, constant, localized in the upper cervical spine, predominantly axial, achy in character w occasional shooting pain towards the top of the scalp. Pain is provoked by hyperextension Pain is alleviated by PT x 6 wks (cerv) which ended in mid Jan 2025, physician guided home stretches daily since 2022, medications, topical, use of a cane for ambulatory assistance, repositioning and rest . Interventional procedures include BL RFA C2-C4 (2014, 2016), BL RFA L3-L5 (2018), PHILIP C6-C7 x1 (02/14) Medications include Neurontin, Tyl, Advil, BioFreeze REVIEW OF ORGAN SYSTEMS: CONSTITUTIONAL: No fevers or chills. No recent weight loss. NEUROLOGICAL: + numbness and tingling along the distal extremities. No seizure disorders or headaches. MUSCULOSKELETAL: + pain PSYCHIATRIC: Denies current depression or suicidal thoughts. Physical Examinations : Constitutional : Cooperative , not in acute distress . Neurologic : Cranial nerve II to XII intact. No focal neurological deficits. Psychiatric : alert & oriented x 3. Matching mood & appropriate affect. Judgment & insight intact. Musculoskeletal : Cervical Spine +Limited BUE abduction due to pain Motor strength in the deltoid and biceps: Normal right side. Normal Left side Motor strength biceps and the wrist extensors: Normal right side . Normal left side Motor strength in the triceps muscle: Normal right side. Normal left side Deep tendon reflexes: Normal at the biceps. Normal at Brachioradialis. Normal at triceps Vertebral body tenderness to deep palpation over C6 Cervical facet loading test: positive BL C2-C3/ C3-C4 Spurling test: positive bilaterally Neck distraction test: positive BL C6- C7 Carmen sign: positive bilaterally Lumbar spine Motor strength lower extremities ,thigh and legs 5/5 Right side , 5/5 Left side Deep tendon reflexes : Normal Knee Jerk. Normal Ankle Jerk Vertebral body tenderness over Streeter Test positive Lumbar facet Loading Test: positive Right / positive Left Range of motion of the lumbar spine Flexion 30 degrees, extension 10 degrees Straight Leg Raise test: Left/ Right positive at degrees Sincere test: positive right / positive left. Severe tenderness over the Sacroiliac joint on the Right / Left sides Gaenslen test: positive bilaterally Seated flexion test: positive bila terally. Sacral spine : Severe tenderness over the Sacroiliac joint: right side / left side Range of motion: Flexion of the lumbar spine <60 degrees Range of motion: Extension of the lumbar spine <20 degrees Gaenslen's Test positive Sincere test: positive right side / left side Thigh Thrust Test Sacral Thrust Test Imaging: MRI non contrast cervical spine from 12/23/24 reviewed Assessment/ Plan : C3-C4 radiculopathy, Cervical spondylosis Recommendation of BL RFA C2-C3/ C3-C4. Risks, benefits of procedure discussed and patient verbalized understanding. Protocol for discontinuation/continuation of medication surrounding procedure discussed. Minimal anesthesia including Fentanyl and Versed if clinically indicated. PT x 6 wks M54.12, M19.019. All questions answered. I have spent greater than 30 minutes on patient care today. Dr Betts was available by phone for the evaluation of this patient. The time was used to review the medical records including relevant urine studies and Prescription history (MAPs), review of the available imaging, evaluation and examination of the patient, coordination of care with the medical staff and if applicable referring physicians, as well as creation of the medical record PQRS Narrative: Smoking Status Former smoker Hx Alcohol Use (MH) No Home Medications: Ambulatory Orders Amitriptyline HCl [Elavil] 50 mg PO HS 08/29/14 Gabapentin 800 mg PO QAM 08/29/14 Simvastatin [Zocor] 20 mg PO HS 08/29/14 metFORMIN HCL [Glucophage] 1,000 mg PO BID 08/29/14 Gabapentin 1,600 mg PO HS 06/24/17 Aspirin [Adult Low Dose Aspirin EC] 81 mg PO DAILY 10/02/22 Empagliflozin [Jardiance] 25 mg PO DAILY 10/02/22 FLUoxetine HCL 20 mg PO QAM 10/02/22 Ferrous Sulfate [Iron] 325 mg PO DAILY 10/02/22 Pioglitazone [Actos] 30 mg PO DAILY 10/02/22 Diclofenac Sodium Gel [Voltaren 1% Gel] 50 gm TOPICAL BID 30 Days #1 each 12/15/24 Tirzepatide [Mounjaro] 02/03/25 Controlled Substance Measures - Controlled Substance Measures Is patient prescribed a controlled substance at discharge?: No
== END ==
LOC: PNWHC3 12:27
PROVIDERS: ATTEND Specialist
DX: M47.22 Other spondylosis with radiculopathy, cervical region (principal); Z87.891 Personal history of nicotine dependence; Z88.6 Allergy status to analgesic agent; Z88.5 Allergy status to narcotic agent; Z88.1 Allergy status to other antibiotic agents; Z88.8 Allergy status to other drugs, medicaments and biological substances
CPT/HCPCS: 99211

== ENCOUNTER 2025-03-09 09:51 | Day surgery (SDC) | payer MEDICARE ==
[2025-03-09 10:43] VITALS: TEMP 98.6
[2025-03-09] MEDS: LACTATED RINGERS 1,000 ML IV SCH (10:43)
[2025-03-09] MEDS: IV FLUID CONTINUATION 1,000 ML IV ONE ×2 (10:43→12:47)
[2025-03-09 10:49] LABS: Glucose,Whole Blood 136 mg/dL (70-110)
[2025-03-09] MEDS ORDERED: ROPIVACAINE 5MG/ML 20ML VIAL ONE (12:06)
[2025-03-09] MEDS ORDERED: MIDAZOLAM 2 MG/2 ML VIAL ONE (12:06)
--- NOTE | 2025-03-09 12:33 | P.PCN ---
Description of Procedure: Description of Procedure: Preprocedure diagnosis. Cervical facet joint arthropathy, cervical spine spondylosis, cervical degenerative disc disease. Postprocedure diagnosis. As above. Procedure done. Bilateral C2-3, C3-4 facet joint (C3,C4 medial branch of dorsal ramus and third occipital nerve) diagnostic injection with local anesthetics under fluoroscopic guidance. Anesthesia. In OR Versed 2 mg . Continuous pulse ox, EKG, blood pressure and verbal communication was maintained with the patient in OR. Sedation time-start 1206 end 1223 . Blood loss. None. Indication. Patient has got the diagnoses of cervical spondylolysis, facet joint arthropathy with neck pain. Discussed with the patient procedure, alternatives, complications including infection, bleeding, nerve damage, paralysis all of which could be permanent. Patient understands and all questions are answered. Procedure note. After getting consent patient in OR in prone position. Back of the neck was prepped with chlorhexidine and draped in sterile fashion. After injecting 3 mL of plain 1% lidocaine subcutaneously, a 22-gauge spinal needle was introduced under tunnel vision of the fluoroscope AP view at the waist of the articular pillar (lateral mass) at C4 vertebral level. In the lateral view of the fluoroscope it was confirmed that the tip of the needle stayed within the dorsal half of the articular pillar (lateral mass). So, right C3-4 facet joint was targeted by blocking right C4 and C3 medial branch, right C2-3 facet joint was targeted by blocking right C3 medial branch and third occipital nerve. In exactly the same way , after subcutaneous injection of lidocaine, 22-gauge spinal needles were introduced under tunnel vision of the fluoroscope AP view at the waist of the articular pillars (lateral mass) at C3 vertebral level. In the lateral view of the fluoroscope it was confirmed that the tip of the needle stayed within the dorsal half of the articular pillar (lateral mass). To target third occipital nerve needle was placed at the lateral border of right C2-3 zygapophyseal joint itself. At each needle, 0.5 mL of 0.5% ropivacaine preservative-free was injected. In exactly same way left C2-3, C3-4 facet joints were targeted by blocking left third occipital nerve and C3, C4 medial branch of dorsal ramus. After the procedure needle was taken out and bandage was applied. Disposition. Patient tolerated the procedure well. No complication. Discharged home in stable condition.
--- NOTE | 2025-03-09 13:19 | FL ---
EXAMINATION TYPE: FL guided pain mgmt statistic DATE OF EXAM: 03/09/2025 FLUOROSCOPY BILATERAL CERVICAL STEROID INJECTION FLUORO TIME 41 SEC DAP [id number] 2 images are submitted [facility], , 03/09/2025 1:16 PM
[2025-03-09 13:24] VITALS: BP 133/74; PULSE 81; RESP 18
[2025-03-09 13:39] LABS: Glucose,Whole Blood 109 mg/dL (70-110)
== END 2025-03-09 13:33 | disposition home or self-care (01) ==
LOC: ORPAIN 09:51
PROVIDERS: ATTEND Pain Medicine Interventional Pain Medicine
DX: M47.812 Spondylosis without myelopathy or radiculopathy, cervical region (principal); M50.31 Other cervical disc degeneration, high cervical region; Z88.5 Allergy status to narcotic agent
CPT/HCPCS: 64490; 64491; J2250; J2795; 99152

== ENCOUNTER 2025-03-09 13:38 | Emergency (ER) | payer MEDICARE ==
[2025-03-09 13:48] VITALS: RESP 18
[2025-03-09 14:25] LABS: Basophils # (A) 0.02 10*3/uL (0.00-0.10); Basophils % (A) 0.3 %; Eosinophils # (A) 0.12 10*3/uL (0.04-0.35); HCT 39.5 % (39.6-50.0); HGB 12.6 g/dL (13.0-17.0); Lymphocytes # (A) 2.41 10*3/uL (0.90-5.00); Lymphocytes % (A) 39.4 %; MCH 24.4 pg (27.0-32.0); MCHC 31.9 g/dL (32.0-37.0); MCV 76.4 fL (80.0-97.0); Mean Platelet Volume 10.5 fL (9.5-12.2); Monocytes # (A) 0.52 10*3/uL (0.20-1.00); Monocytes % (A) 8.5 %; Neutrophils # (A) 3.03 10*3/uL (1.80-7.70); Neutrophils % (A) 49.6 %; Platelet Count 276 10*3/uL (140-440); RBC 5.17 10*6/uL (4.40-5.60); RDW 21.1 % (11.5-14.5); WBC 6.11 10*3/uL (4.50-10.00)
--- NOTE | 2025-03-09 14:36 | ED ---
General Adult HPI - General Chief complaint: Recheck/Abnormal Lab/Rx Stated complaint: cardiac arythmia Time Seen by Provider: 03/09/25 13:45 Source: patient, RN/MD, RN notes reviewed, old records reviewed Mode of arrival: wheelchair - History of Present Illness Initial comments: This is a 74-year-old male who presents to the emergency department after he got some injections in his neck in the pain clinic. Patient states while he was there [facility] noticed he was having frequent PVCs and so he was told to get evaluated down to the emergency department. Patient states he does not have any palpitations he does not feel the PVCs. Patient states he had no chest pain he denies any shortness of breath or difficulty breathing. Patient denies any abdominal pain patient has nausea vomiting diarrhea. Patient has any recent fever chills or cough. - Related Data Home Medications Medication Instructions Recorded Confirmed Amitriptyline HCl [Elavil] 25 mg PO HS 08/29/14 03/09/25 Simvastatin [Zocor] 20 mg PO HS 08/29/14 03/09/25 FLUoxetine HCL 20 mg PO DAILY 10/02/22 03/09/25 Dexlansoprazole [Dexlansoprazole 60 mg PO DAILY 03/07/25 03/09/25 Dr] Gabapentin 900 mg PO HS 03/07/25 03/09/25 Albuterol Inhaler [Ventolin Hfa 2 puff INHALATION RT-Q4H PRN 03/09/25 03/09/25 Inhaler] Pramipexole [Mirapex] 0.5 mg PO HS 03/09/25 03/09/25 Tirzepatide [Mounjaro] 5 mg SQ TH 03/09/25 03/09/25 Tirzepatide [Mounjaro] 7.5 mg SQ DIRECTED 03/09/25 03/09/25 metFORMIN HCL ER [Glucophage XR] 1,000 mg PO BID 03/09/25 03/09/25 traZODone HCL [Desyrel] 150 mg PO HS 03/09/25 03/09/25 Allergies Allergy/AdvReac Type Severity Reaction Status Date / Time acetaminophen Allergy Unknown Verified 03/09/25 13:54 [From Darvocet-N] fentanyl Allergy jumpy on Verified 03/09/25 13:54 the table levofloxacin [From Levaquin] Allergy PAINFUL Verified 03/09/25 13:54 JOINTS propoxyphene Allergy Unknown Verified 03/09/25 13:54 [From Darvocet-N] Review of Systems ROS Statement: Those systems with pertinent positive or pertinent negative responses have been documented in the HPI. ROS Other: All systems not noted in ROS Statement are negative. Past Medical History Past Medical History: COPD, CVA/TIA, Diabetes Mellitus, GERD/Reflux, Hyperlipidemia, Hypertension, Neurologic Disorder, Osteoarthritis (OA), Pneumonia, Sleep Apnea/CPAP/BIPAP Additional Past Medical History / Comment(s): DIABETIC NEUROPATHY, migraines, TIA-"mild stroke"-no effects. No BP medications required at this time. CPAP use. Varicose veins. Cortisone shots in bilateral shoulders recently, going to physical therapy. History of Any Multi-Drug Resistant Organisms: None Reported Past Surgical History: Appendectomy, Bladder Surgery, Bowel Resection, Hernia Repair, Orthopedic Surgery Additional Past Surgical History / Comment(s): PAIN CLINIC PROCEDURES, large polyp removed, colonoscopies, polyp regrew so had right colectomy(Father and Sister of colon cancer), left wrist surgery X3, bilateral carpal tunnel surgery, bilateral cataracts removed, cortisone shots in bilateral shoulders. Past Anesthesia/Blood Transfusion Reactions: No Reported Reaction Smoking Status: Former smoker - Past Family History Father Family Medical History: Cancer Sister(s) Family Medical History: Cancer, Deep Vein Thrombosis (DVT) General Exam - General Exam Comments Initial Comments: GENERAL: Patient is well-developed and well-nourished. Patient is nontoxic and well- hydrated and is in no acute distress. ENT: Neck is soft and supple. No significant lymphadenopathy is noted. Oropharynx is clear. Moist mucous membranes. Neck has full range of motion without eliciting any pain. EYES: The sclera were anicteric and conjunctiva were pink and moist. Extraocular movements were intact and pupils were equal round and reactive to light. Eyelids were unremarkable. PULMONARY: Unlabored respirations. Good breath sounds bilaterally. No audible rales rhonchi or wheezing was noted. CARDIOVASCULAR: There is a regular rate and rhythm without any murmurs gallops or rubs. Occasional extrasystole. ABDOMEN: Soft and nontender with normal bowel sounds. SKIN: Skin is clear with no lesions or rashes and otherwise unremarkable. NEUROLOGIC: Patient is alert and oriented x3. Cranial nerves II through XII are grossly intact. Motor and sensory are also intact. Normal speech, volume and content. Symmetrical smile. MUSCULOSKELETAL: Normal extremities with adequate strength and full range of motion. LYMPHATICS: No significant lymphadenopathy is noted PSYCHIATRIC: Normal psychiatric evaluation. Course Vital Signs 03/09/25 13:41 Temperature 97.3 F L Pulse Rate 87 Respiratory 18 Rate Blood Pressure 127/85 O2 Sat by Pulse 94 L Oximetry Medical Decision Making - Medical Decision Making EKG is interpreted by myself and EKG shows a sinus rhythm with multiple PVCs. Patient's rate is 81 bpm OR interval is 201 QRS is 95 QT interval is 364 QTc is 4 1. Patient's EKG shows no ST segment elevation or depression. Was pt. sent in by a medical professional or institution (, PA, [facility], urgent care, hospital, or fdc...) When possible be specific @ -No Did you speak to anyone other than the patient for history (EMS, parent, family, police, friend...)? What history was obtained from this source @ -No Did you review nursing and triage notes (agree or disagree)? Why? @ -I reviewed and agree with nursing and triage notes Were old charts reviewed (outside hosp., previous admission, EMS record, old EKG, old radiological studies, urgent care reports/EKG's, fdc records)? Report findings @ -No old charts were reviewed Differential Diagnosis? @ -Differential Palpitations Ventricular arrhythmias, atrial arrhythmias, myocardial infarction, anemia, thyrotoxicosis, electrolyte imbalance, hypokalemia, pulmonary embolism, pulmon jesenia disease, drugs, alcohol, anxiety, stress.... This is not meant to be an all-inclusive list. EKG interpreted by me (3pts min.). @ -As above X-rays interpreted by me (1pt min.). @ -None done CT interpreted by me (1pt min.). @ -None done U/S interpreted by me (1pt. min.). @ -None done What testing was considered but not performed or refused? (CT, X-rays, U/S, labs)? Why? @ -None What meds were considered but not given or refused? Why? @ -None Did you discuss the management of the patient with other professionals (professionals i.e. , PA, [facility], lab, RT, psych nurse, health and social care teacher, violin teacher, te acher, truant officer, case monitor)? Give summary @ -No Was smoking cessation discussed for >3mins.? @ -No Was critical care preformed (if so, how long)? @ -No Were there social determinants of health that impacted care today? How? (Homelessness, low income, unemployed, alcoholism, drug addiction, transportation, low edu. Level, literacy, decrease access to med. care, halfway, rehab)? @ -No Was there de-escalation of care discussed even if they declined (Discuss DNR or withdrawal of care, Hospice)? DNR status @ -No What co-morbidities impacted this encounter? (DM, HTN, Smoking, COPD, CAD, Cancer, CVA, ARF, Chemo, Hep., AIDS, mental health diagnosis, sleep apnea, morbid obesity)? @ -None Was patient admitted / discharged? Hospital course, mention meds given and route, prescriptions, significant lab abnormalities, going to OR and other pertinent info. @ -Patient remained asymptomatic throughout his ED stay. Patient will be discharged home to follow-up with his primary medical care doctor Undiagnosed new problem with uncertain prognosis? @ -No Drug Therapy requiring intensive monitoring for toxicity (Heparin, Nitro, Insulin, Cardizem)? @ -No Were any procedures done? @ -No Diagnosis/symptom? @ -PVCs Acute, or Chronic, or Acute on Chronic? @ -Acute Uncomplicated (without systemic symptoms) or Complicated (systemic symptoms)? @ -Uncomplicated Side effects of treatment? @ -No Exacerbation, Progression, or Severe Exacerbation? @ -No Poses a threat to life or bodily function? How? (Chest pain, [place], [place], pneumonia, PE, COPD, DKA, ARF, appy, cholecystitis, CVA, Diverticulitis, Homicidal, Suicidal, threat to staff... and all critical care pts) @ -No - Lab Data Result diagrams: 03/09/25 14:00 Lab Results 03/09/25 Range/Units 14:00 WBC 6.11 (4.50-10.00) 10*3/uL RBC 5.17 (4.40-5.60) 10*6/uL Hgb 12.6 L (13.0-17.0) g/dL Hct 39.5 L (39.6-50.0) % MCV 76.4 L (80.0-97.0) fL MCH 24.4 L (27.0-32.0) pg MCHC 31.9 L (32.0-37.0) g/dL Plt Count 276 (140-440) 10*3/uL MPV 10.5 (9.5-12.2) fL Immature Gran % (Auto) 0.2 % Neutrophils % 49.6 % Lymphocytes % 39.4 % Monocytes % 8.5 % Eosinophils % 2.0 % Basophils % 0.3 % Immature Gran # 0.01 (0.00-0.04) 10*3/uL Neutrophils # 3.03 (1.80-7.70) 10*3/uL Lymphocytes # 2.41 (0.90-5.00) 10*3/uL Monocytes # 0.52 (0.20-1.00) 10*3/uL Eosinophils # 0.12 (0.04-0.35) 10*3/uL Basophils # 0.02 (0.00-0.10) 10*3/uL Disposition Clinical Impression: Frequent PVCs Disposition: HOME SELF-CARE Condition: Good Instructions (If sedation given, give patient instructions): Premature Ventricular Contractions (ED) Is patient prescribed a controlled substance at d/c from ED?: No Referrals: Ellis Montoya DO [Primary Care Provider] - 1-2 days Time of Disposition: 14:36
[2025-03-09 14:37] LABS: ALT 12 U/L (4-49); AST 23 U/L (17-59); African American GFR (CKD) >90 (>60 ml/min/1.73 sqM); Albumin 3.8 g/dL (3.5-5.0); Alkaline Phosphatase 73 U/L (38-126); Anion Gap 5 mmol/L; Blood Urea Nitrogen 7 mg/dL (9-20); Calcium 9.3 mg/dL (8.4-10.2); Carbon Dioxide 28 mmol/L (22-30); Chloride 104 mmol/L (98-107); Glucose 112 mg/dL (74-99); Magnesium 1.8 mg/dL (1.6-2.3); Non-African American GFR(CKD) >90 (>60 ml/min/1.73 sqM); Potassium 4.2 mmol/L (3.5-5.1); Sodium 137 mmol/L (137-145); Total Bilirubin 0.4 mg/dL (0.2-1.3)
[2025-03-09 15:19] VITALS: BP 134/73; PULSE 81; TEMP 97.6
== END 2025-03-09 15:10 | disposition home or self-care (01) ==
LOC: EC 13:38
DX: I49.3 Ventricular premature depolarization (principal); Z86.73 Personal history of transient ischemic attack (TIA), and cerebral infarction without residual deficits; Z87.891 Personal history of nicotine dependence; Z88.1 Allergy status to other antibiotic agents; Z88.8 Allergy status to other drugs, medicaments and biological substances
CPT/HCPCS: 36415; 80053; 83735; 84484; 85025; 93005; 99283

== ENCOUNTER → 2025-03-29 | Outpatient (CLI) | payer MEDICARE ==
[2025-03-29 13:41] VITALS: BP 131/78; PULSE 86; RESP 16; TEMP 97.1
--- NOTE | 2025-03-29 15:56 | P.PAINPG ---
Objective - Vital Signs Vital signs: Vital Signs Temp 97.1 F L 03/29/25 13:29 Pulse 86 03/29/25 13:29 Resp 16 03/29/25 13:29 BP 131/78 03/29/25 13:29 Pulse Ox 94 L 03/29/25 13:29 FiO2 Intake & Output 03/28/25 03/29/25 03/29/25 18:59 06:59 18:59 Weight 94.801 kg PQRS Measure Charge Sheet Mode of Arrival: Ambulatory Comment: HISTORY OF PRESENT ILLNESS: A 74 yr old male w male bareback rider at side presents today w severe and chronic neck pain > 3 mo secondary to radiculopathy, spondylosis and facet arthropathy without myelopathy for evaluation s/p BL MBB C2-C3/ C3-C4 #1. Pt states he experienced 80% pain relief x 1 day s/p procedure. Pt states pain level is provoked at 6 /10 in intensity, constant, localized in the upper cervical spine, predominantly axial, achy in character w occasional shooting pain towards the top of the scalp. Pain is provoked by hyperextension. Pain is alleviated by PT x 3.5 wks (cerv, shoulder) which he is currently in, physician guided home stretches daily since 2022, medications, topical, use of a cane for ambulatory assistance, repositioning and rest . Interventional procedures include BL MBB C2-C4 x1, BL RFA C2-C4 (2014, 2016), BL RFA L3-L5 (2018), PHILIP C6-C7 x1 (02/14) Medications include Neurontin, Tyl, Advil, BioFreeze REVIEW OF ORGAN SYSTEMS: CONSTITUTIONAL: No fevers or chills. No recent weight loss. NEUROLOGICAL: + numbness and tingling along the distal extremities. No seizure disorders or headaches. MUSCULOSKELETAL: + pain PSYCHIATRIC: Denies current depression or suicidal thoughts. Physical Examinations : Constitutional : Cooperative , not in acute distress . Neurologic : Cranial nerve II to XII intact. No focal neurological deficits. Psychiatric : alert & oriented x 3. Matching mood & appropriate affect. Judgment & insight intact. Musculoskeletal : Cervical Spine +Limited BUE abduction due to pain Motor strength in the deltoid and biceps: Normal right side. Normal Left side Motor strength biceps and the wrist extensors: Normal right side . Normal left side Motor strength in the triceps muscle: Normal right side. Normal left side Deep tendon reflexes: Normal at the biceps. Normal at Brachioradialis. Normal at triceps Vertebral body tenderness to deep pa lpation over C6 Cervical facet loading test: positive BL C2-C3/ C3-C4 Spurling test: positive bilaterally Neck distraction test: positive BL C6- C7 Carmen sign: positive bilaterally Lumbar spine Motor strength lower extremities ,thigh and legs 5/5 Right side , 5/5 Left side Deep tendon reflexes : Normal Knee Jerk. Normal Ankle Jerk Vertebral body tenderness over Streeter Test positive Lumbar facet Loading Test: positive Right / positive Left Range of motion of the lumbar spine Flexion 30 degrees, extension 10 degrees Straight Leg Raise test: Left/ Right positive at degrees Sincere test: positive right / positive left. Severe tenderness over the Sacroiliac joint on the Right / Left sides Gaenslen test: positive bilaterally Seated flexion test: positive bilaterally. Sacral spine : Severe tenderness over the Sacroiliac joint: right side / left side Range of motion: Flexion of the lumbar spine <60 degrees Range of motion: Extension of the lumbar spine <20 degrees Gaenslen's Test positive Sincere test: positive right side / left side Thigh Thrust Test Sacral Thrust Test Imaging: MRI non contrast cervical spine from 12/23/24 reviewed Assessment/ Plan : C3-C4 radiculopathy, Cervical spondylosis, BL Shoulder DJD Recommendation of BL MBB C2-C3/ C3-C4 #2. Risks, benefits of procedure discussed and patient verbalized understanding. Protocol for discontinuation /continuation of medication surrounding procedure discussed. Minimal anesthesia including Fentanyl and Versed if clinically indicated. All questions answered. I have spent greater than 30 minutes on patient care today. Dr Betts was available by phone for the evaluation of this patient. The time was used to review the medical records including relevant urine studies and Prescription history (MAPs), review of the available imaging, evaluation and examination of the patient, coordination of care with the medical staff and if applicable referring physicians, as well as creation of the medical record - Pain Location Bilateral Lower Back Non-Pharmacological Interventions: Heat, Inactivity, Physical Therapy, Position/Reposition, Sitting, Standing Pharmacological Interventions: Block, Epidural, PRN Medication, Topical Medication PQRS Narrative: Smoking Status Former smoker Blood Pressure 131/78 Pain Intensity [Bilateral 6 Lower Back] Scale Used Numeric (1 - 10) Hx Alcohol Use (MH) No Home Medications: Ambulatory Orders Amitriptyline HCl [Elavil] 25 mg PO HS 08/29/14 Simvastatin [Zocor] 20 mg PO HS 08/29/14 FLUoxetine HCL 20 mg PO DAILY 10/02/22 Dexlansoprazole [Dexlansoprazole Dr] 60 mg PO DAILY 03/07/25 Gabapentin 900 mg PO HS 03/07/25 Albuterol Inhaler [Ventolin Hfa Inhaler] 2 puff INHALATION RT-Q4H PRN 03/09/25 Pramipexole [Mirapex] 0.5 mg PO HS 03/09/25 Tirzepatide [Mounjaro] 5 mg SQ TH 03/09/25 Tirzepatide [Mounjaro] 7.5 mg SQ DIRECTED 03/09/25 metFORMIN HCL ER [Glucophage XR] 1,000 mg PO BID 03/09/25 traZODone HCL [Desyrel] 150 mg PO HS 03/09/25 Controlled Substance Measures - Controlled Substance Measures Is patient prescribed a controlled substance at discharge?: No
== END ==
LOC: PNWHC3 13:17
PROVIDERS: ATTEND Specialist
DX: M47.22 Other spondylosis with radiculopathy, cervical region (principal); M19.012 Primary osteoarthritis, left shoulder; M19.011 Primary osteoarthritis, right shoulder; Z88.6 Allergy status to analgesic agent; Z88.5 Allergy status to narcotic agent; Z88.1 Allergy status to other antibiotic agents; Z87.891 Personal history of nicotine dependence
CPT/HCPCS: 99211

== ENCOUNTER 2025-05-18 11:32 | Day surgery (SDC) | payer MEDICARE ==
[2025-05-16 11:19] VITALS: BMI 29.1
[2025-05-18 12:22] VITALS: RESP 16; TEMP 97.8
[2025-05-18] MEDS: IV FLUID CONTINUATION 1,000 ML IV ONE ×2 (12:25→14:12)
[2025-05-18 12:27] LABS: Glucose,Whole Blood 141 mg/dL (70-110)
[2025-05-18] MEDS: HYDROmorphone 0.5 MG/0.5 ML SYRINGE IVP STA (13:22)
[2025-05-18] MEDS: LACTATED RINGERS 1,000 ML IV SCH (13:23)
[2025-05-18] MEDS ORDERED: methylPREDNISolone ACETATE 40 MG/ML 1 ML VIAL ONE (13:35)
[2025-05-18] MEDS ORDERED: ROPIVACAINE 5 MG/ML 30 ML VIAL ONE (13:35)
[2025-05-18] MEDS ORDERED: MIDAZOLAM 2 MG/2 ML VIAL ONE (13:35)
--- NOTE | 2025-05-18 14:00 | P.PCN ---
Date of Procedure: 05/18/25 Procedure(s) Performed: PREOPERATIVE DIAGNOSIS: Cervical spondylosis with Facet Arthropathy without myelopathy. POSTOPERATIVE DIAGNOSIS: Cervical spondylosis with Facet Arthropathy without myelopathy. PROCEDURES: Radiofrequency thermocoagulation Left C2 ,C3, C4 medial branch with Fluroscopy [place](fluoroscopy was available in Radiology department ) (to denervate the facet joint at Left C2-3 ,C3- 4 ) ANESTHESIA: moderate sedation with Versed 4 mg (sedation start time 13:35 , end time 13:51 ) EBL: Minimal PROCEDURE INDICATION: The patient with neck pain secondary to cervical arthropathy who had more than 50% relief of her pain with previous diagnostic cervical medial branch block. PROCEDURE DESCRIPTION / TECHNIQUE: The patient was seen and identified in the preoperative area. Risks, benefits, complications, and alternatives were discussed with the patient, the patient agreed to proceed with the procedure and signed the consent. IV was started. Vital signs remained stable throughout the procedure. Patient was taken to the OR and time out was completed. The patient was placed in the lateral position on the procedure table.(Prone position I was not able to visualize C4 level because patient has severe shoulder pain ). The cervical area was prepped and draped in the usual sterile fashion. Critical pause was taken. Vital signs were closely monitored during the procedure. Conscious sedation was used during the procedure to decrease patients anxiety. Using cross-table lateral fluoroscopy, the centroid of the trapezoid of Left C2 ,C3, C4, were identified, marked, and localized with 1% lidocaine. Subsequently, a 20 [id number] radiofrequency cannula with a 10-mm active tip was advanced guided by fluoroscopy to the centroid of the trapezoid of left C2 ,C3, C4, . Needle tip position was confirmed at the centroid of the trapezoids of left C2 , C3, C4, with anteroposterior fluoroscopy. Each site then underwent sensory testing at 50 Hz and 0 to 1 volt and motor testing at 2 Hz and 0 to 3 volt with local stimulation, but no radicular symptoms down the arm. Thereafter each sites underwent radiofrequency thermocoagulation at 80 degrees celsius for 90 seconds after injecting 0.5 ml of PF Ropivacaine 0.5 %. After thermocoagulation, 1 ml of the block solution containing Depo-Medrol 40 mg and 3 mL of preservative-free normal saline was injected at the Left C2,C3, C4, levels after negative aspiration of CSF and blood and with no paresthesias. Ca nnulas were retracted while injecting lidocaine 1% until the needle is out. Skin was cleansed and bandages were applied. COMPLICATIONS: No acute complications. DISPOSITION / PLANS: The patient was placed in a supine position and transferred to the recovery area in a stable condition for observation and was discharged from the recovery room after meeting discharge criteria. Home discharge instructions given to the patient by the staff. The patient was reexamined prior to discharge. The patient will schedule a follow up in the clinic in 2-4 weeks.
--- NOTE | 2025-05-18 14:04 | FL ---
EXAMINATION TYPE: FL guided pain mgmt statistic DATE OF EXAM: 05/18/2025 FLUOROSCOPY FLUORO TIME: 19 SEC DAP: [id number] 3 images are provided during bilateral cervical facet blocks. [facility], , 05/18/2025 2:02 PM
[2025-05-18 14:15] VITALS: BP 112/69; PULSE 92
== END 2025-05-18 14:36 | disposition home or self-care (01) ==
LOC: ORPAIN 11:32
PROVIDERS: ATTEND Specialist
DX: M47.812 Spondylosis without myelopathy or radiculopathy, cervical region (principal); E11.9 Type 2 diabetes mellitus without complications; Z79.84 Long term (current) use of oral hypoglycemic drugs; Z79.85 Long-term (current) use of injectable non-insulin antidiabetic drugs; Z88.5 Allergy status to narcotic agent; Z88.8 Allergy status to other drugs, medicaments and biological substances
CPT/HCPCS: 64633; 64634; J2250; J2795; J1171; J1010; 99152

== ENCOUNTER 2025-06-06 07:30 | Day surgery (SDC) | payer MEDICARE ==
[2025-06-02 11:14] VITALS: BMI 29.1
[2025-06-06] MEDS: IV FLUID CONTINUATION 1,000 ML IV ONE ×2 (08:31→09:55)
[2025-06-06] MEDS: LACTATED RINGERS 1,000 ML IV SCH (08:31)
[2025-06-06 08:34] LABS: Glucose,Whole Blood 162 mg/dL (70-110)
[2025-06-06 08:42] VITALS: TEMP 98.5
[2025-06-06] MEDS: HYDROmorphone 0.5 MG/0.5 ML SYRINGE IVP STA (09:16)
[2025-06-06] MEDS ORDERED: methylPREDNISolone ACETATE 40 MG/ML 1 ML VIAL ONE (09:20)
[2025-06-06] MEDS ORDERED: ROPIVACAINE 5 MG/ML 30 ML VIAL ONE (09:20)
[2025-06-06] MEDS ORDERED: MIDAZOLAM 2 MG/2 ML VIAL ONE (09:20)
--- NOTE | 2025-06-06 09:46 | P.PCN ---
Date of Procedure: 06/06/25 Procedure(s) Performed: PREOPERATIVE DIAGNOSIS: Cervical spondylosis with Facet Arthropathy without myelopathy. POSTOPERATIVE DIAGNOSIS: Cervical spondylosis with Facet Arthropathy without myelopathy. PROCEDURES: Radiofrequency thermocoagulation Right C2 ,C3, C4 medial branch with Fluroscopy [place](fluoroscopy was available in Radiology department ) (to denervate the facet joint at Right C2-3 ,C3- 4 ) ANESTHESIA: moderate sedation with Versed 4 mg (sedation start time 09:20 , end time 09:43 ) EBL: Minimal PROCEDURE INDICATION: The patient with neck pain secondary to cervical arthropathy who had more than 50% relief of her pain with previous diagnostic cervical medial branch block. PROCEDURE DESCRIPTION / TECHNIQUE: The patient was seen and identified in the preoperative area. Risks, benefits, complications, and alternatives were discussed with the patient, the patient agreed to proceed with the procedure and signed the consent. IV was started. Vital signs remained stable throughout the procedure. Patient was taken to the OR and time out was completed. The patient was placed in the lateral position on the procedure table.(Prone position I was not able to visualize C4 level because patient has severe shoulder pain ). The cervical area was prepped and draped in the usual sterile fashion. Critical pause was taken. Vital signs were closely monitored during the procedure. Conscious sedation was used during the procedure to decrease patients anxiety. Using cross-table lateral fluoroscopy, the centroid of the trapezoid of Right C2 ,C3, C4, were identified, marked, and localized with 1% lidocaine. Subsequently, a 20 [id number] radiofrequency cannula with a 10-mm active tip was advanced guided by fluoroscopy to the centroid of the trapezoid of Right C2 ,C3, C4, . Needle tip position was confirmed at the centroid of the trapezoids of Right C2 , C3, C4, with anteroposterior fluoroscopy. Each site then underwent sensory testing at 50 Hz and 0 to 1 volt and motor testing at 2 Hz and 0 to 3 volt with local stimulation, but no radicular symptoms down the arm. Thereafter each sites underwent radiofrequency thermocoagulation at 80 degrees celsius for 90 seconds after injecting 0.5 ml of PF Ropivacaine 0.5 %. After thermocoagulation, 1 ml of the block solution containing Depo-Medrol 40 mg and 3 mL of preservative-free normal saline was injected at the Right C2,C3, C4, levels after negative aspiration of CSF and blood and with no paresthesias. Cannulas were retracted while injecting lidocaine 1% until the needle is out. Skin was cleansed and bandages were applied. COMPLICATIONS: No acute complications. DISPOSITION / PLANS: The patient was placed in a supine position and transferred to the recovery area in a stable condition for observation and was discharged from the recovery room after meeting discharge criteria. Home discharge instructions given to the patient by the staff. The patient was reexamined prior to discharge. The patient will schedule a follow up in the clinic in 2-4 weeks.
--- NOTE | 2025-06-06 10:00 | FL ---
EXAMINATION TYPE: FL guided pain mgmt statistic DATE OF EXAM: 06/06/2025 9:45 AM COMPARISON: Pre Operative Images if available both CT/MRI or plain film CLINICAL INDICATION: Male, 74 years old with history of RF CERVICAL; TECHNIQUE: FL guided pain mgmt statistic, multiple fluoroscopic images provided for procedure. DAP: [id number] mGym2 Gycm2 uGym2 cGycm2 or equivalent. FINDINGS: Fluoroscopic images during injection for pain management demonstrate multilevel degeneration changes throughout the spine. No evidence for fracture. No acute process identified. IMPRESSION: 1. No evidence for intraoperative complication. 2. Please see the operative/procedural note for further details. [facility], , 06/06/2025 9:58 AM
[2025-06-06 10:31] VITALS: BP 133/79; PULSE 86; RESP 16
== END 2025-06-06 10:41 | disposition home or self-care (01) ==
LOC: ORPAIN 07:30
PROVIDERS: ATTEND Specialist
DX: M47.812 Spondylosis without myelopathy or radiculopathy, cervical region (principal); E11.9 Type 2 diabetes mellitus without complications; Z79.84 Long term (current) use of oral hypoglycemic drugs; Z79.85 Long-term (current) use of injectable non-insulin antidiabetic drugs; Z88.8 Allergy status to other drugs, medicaments and biological substances
CPT/HCPCS: 64633; 64634; J2250; J2795; J1171; J1010; 99152; 99153

== ENCOUNTER → 2025-06-15 | Outpatient (CLI) | payer MEDICARE ==
--- NOTE | 2025-06-15 13:53 | CA ---
Transthoracic Echo Report Name: Derik Treadwell Age: 74 Gender: M : 1950 Exam Date: 06/15/2025 09:26 Exam Location: [facility] Ht (in): 71 Wt (lb): 206 Ordering Physician: Ellis Montoya DO Attending/Referring Phys: Monalisa Silvestre PAC Donor Services Team Leader Veronica Del Rio RDCS Procedure CPT: Indications: R002 PALPITATIONS Cardiac Hx: Technical Quality: Good Contrast 1: Total Dose (mL): Contrast 2: Total Dose (mL): MEASUREMENTS (Male / Female) Normal Values 2D ECHO LV Diastolic Diameter PLAX 4.1 cm 4.2 - 5.9 / 3.9 - 5.3 cm LV Systolic Diameter PLAX 3.2 cm IVS Diastolic Thickness 1.1 cm 0.6 - 1.0 / 0.6 - 0.9 cm LVPW Diastolic Thickness 1.1 cm 0.6 - 1.0 / 0.6 - 0.9 cm LV Relative Wall Thickness 0.5 RV Internal Dim ED PLAX 2.8 cm LA Systolic Diameter LX 3.2 cm 3.0 - 4.0 / 2.7 - 3.8 cm LV Diastolic Volume MOD 4C 110.9 cm??? LV Systolic Volume MOD 4C 59.8 cm??? LV Ejection Fraction MOD 4C 46.1 % LV Cardiac Index MOD 4C 1992.2 cm???/min???m??? LV Diastolic Length 4C 8.9 cm LV Systolic Length 4C 7.7 cm LV Diastolic Volume MOD 2C 139.7 cm??? LV Systolic Volume MOD 2C 77.3 cm??? LV Ejection Fraction MOD 2C 44.6 % LV Cardiac Index MOD 2C 2428.0 cm???/min???m??? LV Diastolic Length 2C 8.4 cm LV Systolic Length 2C 7.2 cm LA Volume 59.4 cm??? 18 - 58 / 22 - 52 cm??? LA Volume Index 27.2 cm???/m??? 16 - 28 cm???/m??? M-MODE Aortic Root Diameter MM 3.4 cm AV Cusp Separation MM 2.6 cm DOPPLER AV Peak Velocity 118.1 cm/s AV Peak Gradient 5.6 mmHg AV Mean Velocity 81.3 cm/s AV Mean Gradient 2.9 mmHg AV Velocity Time Integral 21.8 cm LVOT Peak Velocity 82.7 cm/s LVOT Peak Gradient 2.7 mmHg LVOT Velocity Time Integral 19.4 cm MV Area PHT 4.8 cm??? Mitral E Point Velocity 61.6 cm/s Mitral A Point Velocity 95.1 cm/s Mitral E to A Ratio 0.6 MV Deceleration Time 156.9 ms TR Peak Velocity 219.8 cm/s TR Peak Gradient 19.3 mmHg Right Ventricular Systolic Press 23.6 mmHg FINDINGS Left Ventricle Left ventricular ejection fraction is estimated at 45-50 %. Left ventricular cavity size normal. Mildly increased septal wall thickness. No obvious regional wall motion abnormalities. Right Ventricle Normal right ventricular size. Right ventricular systolic pressure within normal limits. Right Atrium Normal right atrial size. No right atrial thrombus or mass seen. Left Atrium Mildly increased left atrial volume. No left atrial thrombus or mass present. Mitral Valve Structurally normal mitral valve. No evidence for mitral valve prolapse. No mitral stenosis. Mild mitral regurgitation. Aortic Valve Trileaflet aortic valve. No aortic valve stenosis or regurgitation. Tricuspid Valve Structurally normal tricuspid valve. Mild tricuspid regurgitation. Pulmonic Valve Pulmonic valve not well visualized. No pulmonic regurgitation. Pericardium No pericardial effusion. Aorta Normal size aortic root and proximal ascending aorta. CONCLUSIONS LVEF 45 to 50% Grade 1 diastolic dysfunction No obvious regional wall motion abnormality Normal RV size and systolic function Mild left atrial dilatation Mild mitral regurgitation, mild tricuspid regurgitation Previewed by: Dr Thony Corbett (Electronically Signed) Final Date: 15 June 2025 11:04
== END | disposition home or self-care (01) ==
LOC: RADNMMAIN 08:54
PROVIDERS: ATTEND Family Medicine
DX: I08.1 Rheumatic disorders of both mitral and tricuspid valves (principal); R00.2 Palpitations
CPT/HCPCS: 93270; 93306

== ENCOUNTER → 2025-06-23 | Outpatient (CLI) | payer MEDICARE ==
--- NOTE | 2025-06-23 11:05 | CT ---
EXAMINATION TYPE: CT shoulder LT wo con DATE OF EXAM: 06/23/2025 COMPARISON: None CLINICAL INDICATION: Male, 74 years old with history of M75.81, M25.512 PAIN IN LEFT SHOULDER; PHH, p re op CT DLP: 482 mGycm Automated exposure control for dose reduction was used. FINDINGS: Generalized demineralization with multilevel severe degenerative disc disease of the visualized verte bral column. There is arthropathy of the sternoclavicular joint. Moderate to severe AC joint hypertrophic arthropathy. There is severe arthropathy of the glenohumeral joint with hypertrophic spurring. Complete loss of ghislaine int space. No acute fracture or dislocation. Visualized lung field is clear. Coronary artery calcifications noted. Emphysematous changes. IMPRESSION: 1. SEVERE GLENOHUMERAL JOINT ARTHROPATHY WITH COMPLETE LOSS OF JOINT SPACE. 2. MODERATE TO SEVERE AC JOINT ARTHROPATHY. [facility], , 06/23/2025 11:03 AM
== END | disposition home or self-care (01) ==
LOC: RADCTMAIN 10:17
PROVIDERS: ATTEND Orthopaedic Surgery Sports Medicine
DX: M75.81 Other shoulder lesions, right shoulder (principal); M19.012 Primary osteoarthritis, left shoulder; M19.011 Primary osteoarthritis, right shoulder; M75.82 Other shoulder lesions, left shoulder